=== PATIENT | male | born 1970 | race Caucasian/White ===

== ENCOUNTER 2024-01-09 11:07 | Inpatient (IN) ==
--- NOTE | 2024-01-09 11:26 | Emergency Department Note ---
Impression & Plan AMS (altered mental status), Acute hypokalemia, Leukocytosis, Transaminitis, Acute UTI (urinary tract infection) ED Provider Note HISTORY OF PRESENT ILLNESS: Patient is a 53-year-old male presenting after being found down. Patient was found down by neighbors under a mei outside of his house today. He was laying in the dirt. He was last seen at 1999 on 01/08/2024. Patient is amnestic to the events of last night and this morning leading up to him getting to the ER. He has no complaints on arrival to the ER. Denies any chest pain or shortness of breath. Denies any headache or changes in vision. Denies any numbness or tingling or weakness in his extremities. He states he drinks "2 and 2" every day, stating he drinks 2 beers and 2 shots. He reports he has not drank today. ROS: as above PHYSICAL EXAM: Constitutional: Patient appears in no acute distress. Patient is unkempt appearing and is covered in dirt. HENT: Head: Normocephalic. Hematoma to the right forehead. Eyes: EOMI, PERRL Mouth/Throat: Mucous membranes moist. Neck: Trachea midline. Neck supple. No cervical collar in place. No C- spine tenderness to palpation. Cardiovascular: RRR, No murmurs, rubs or gallops. Intact distal pulses. Pulmonary/Chest: No respiratory distress. Breath sounds clear and equal bilaterally. No wheezes or rales Abdominal: Abdomen soft, no tenderness, rebound or guarding. Musculoskeletal: No edema, tenderness or deformity noted. Skin: Warm and dry. No rash, erythema, pallor or cyanosis Neurological: Alert but confused. CN II-XII grossly intact, moving all extremities equally and fully. MDM: - Vitals signs showed tachycardia. - History obtained via patient and EMS, given patient's confusion. History as above. - Chronic conditions affecting care: Alcohol use disorder - Differential diagnoses include, but are not limited to: CVA; intracranial hemorrhage; ACS; electrolyte abnormality; alcohol intoxication; drug intoxication - Order placed for continuous cardiac monitoring. At this time, monitor showed rate of 92 bpm with normal sinus rhythm, per my interpretation. - External medical records reviewed. - EKG interpreted by myself showed normal sinus rhythm. Rate 117 bpm. QT prolonged at 434. No acute ischemic changes. - Laboratory workup interpreted by myself showed leukocytosis (WBC 14.85); normal PT/INR; hypokalemia (K 3.2); elevated anion gap (17); normal creatinine; transaminitis (AST 117; ALT 83); elevated total bilirubin (3.6); normal troponin; normal lipase; normal TSH; negative alcohol; normal magnesium - UA negative for bacteria. However, noted to have leukocyte esterase and nitrites, so will treat with rocephin. 2g IV rocephin ordered - UDS negative - CXR negative for pneumonia or pneumothorax, per my interpretation - CT head wo contrast negative for acute pathology - CT cervical spine wo contrast negative for acute pathology - CT abdomen/pelvis with IV contrast showed nonobstructive stones of the right kidney. Noted to have colonic wall thickening which could be a nonspecific colitis. - Alcohol withdrawal score 5. Alcohol withdrawal protocol ordered with PO PRN ativan. Patient reports his last drink was 48 hours ago. - Patient given 1L NS and banana bag. Ordered a total of 40 mEq IV potassium in potassium runs in the ER for electrolyte replacement. Given 1g IV magnesium for electrolyte replacement - Given patient's persistent confusion of unclear etiology as well has his electrolyte abnormalities causing a prolonged QT and EKG changes, will admit to hospital service. - Discussion was had with special education case manager about patient's case and need for admission - Hospitalist, Dr. Valera, consulted for admission - Patient admitted to [facility] hospitalist service for further evaluation and management. I have personally spent 41 minutes of critical care time in the direct management of this patient. This includes bedside care, interpretation of diagnostic studies, and testing, discussion with consultants, patient, and family members, and other required patient management activities. This 41 minutes is in excess of all separately billable procedures. ASSESSMENT AND PLAN: Diagnosis: Altered mental status; acute hypokalemia; leukocytosis; transaminitis; acute UTI Plan: admit Past Med/Surg History Problem List (Updated 01/09/24 @ 14:28 by Gauri Hansen MD) Acute UTI (urinary tract infection) (Acute) Transaminitis (Acute) Leukocytosis (Acute) Acute hypokalemia (Acute) AMS (altered mental status) (Acute) Social History Feels Safe at Home: Yes Results & Data (ED) Vital Signs Vital Signs - 24 hr 01/09/24 11:30 01/09/24 11:33 01/09/24 11:48 Temperature 37.1 C Temperature Source Oral Pulse Rate 115 H 117 H 108 H Pulse Rate [Left] Pulse Rate from SpO2 Sensor Pulse Rhythm [Left] Pulse Strength [Left] Respiratory Rate 17 20 Respiratory Effort / Characteristics Respiratory Depth Respiratory Pattern Blood Pressure Blood Pressure [Right Arm] Blood Pressure Mean Blood Pressure Mean [Right Arm] Blood Pressure Position [Right Arm] Pulse Oximetry 100 Oxygen Delivery Method Room Air Sepsis Recent Fever Within 48 Hours No Sepsis New/Unexplained Change in Mental Status No Sepsis Action Taken by Nursing No Action Required 01/09/24 11:54 01/09/24 12:06 01/09/24 12:15 Temperature Temperature Source Pulse Rate 112 H 112 H Pulse Rate [Left] Pulse Rate from SpO2 Sensor 111 H 111 H Pulse Rhythm [Left] Pulse Strength [Left] Respiratory Rate 16 20 Respiratory Effort / Characteristics Respiratory Depth Respiratory Pattern Blood Pressure 107/84 101/76 Blood Pressure [Right Arm] Blood Pressure Mean 91 78 Blood Pressure Mean [Right Arm] Blood Pressure Position [Right Arm] Pulse Oximetry 95 93 98 Oxygen Delivery Method Room Air Room Air Room Air Sepsis Recent Fever Within 48 Hours Sepsis New/Unexplained Change in Mental Status Sepsis Action Taken by Nursing 01/09/24 12:33 01/09/24 12:43 01/09/24 13:15 Temperature 36.8 C Temperature Source Oral Pulse Rate 109 H Pulse Rate [Left] 92 H Pulse Rate from SpO2 Sensor 111 H Pulse Rhythm [Left] Regular Pulse Strength [Left] Normal Respiratory Rate 19 18 Respiratory Effort / Characteristics Non-Labored Respiratory Depth Normal Respiratory Pattern Regular Blood Pressure 104/86 Blood Pressure [Right Arm] 138/87 Blood Pressure Mean 92 Blood Pressure Mean [Right Arm] 104 Blood Pressure Position [Right Arm] Sitting Pulse Oximetry 94 98 98 Oxygen Delivery Method Room Air Room Air Room Air Sepsis Recent Fever Within 48 Hours Sepsis New/Unexplained Change in Mental Status Sepsis Action Taken by Nursing Laboratory Data 01/09/24 11:21 01/09/24 11:21 Lab Results 01/09/24 01/09/24 01/09/24 Range/Units 11:21 11:23 11:28 WBC 14.85 H (4.8-10.8) K/ul RBC 3.57 L (4.70-6.10) M/uL Hgb 12.7 L (14.0-18.0) g/dl POC Hgb 12.2 L (14.0-18.0) g/dl Hct 35.9 L (42.0-52.0) % POC Hct 36 L (42-52) % MCV 100.6 H (80.0-100.0) fL MCH 35.6 H (25.0-34.0) pg MCHC 35.4 (32.0-36.0) g/dL RDW Std Deviation 47.8 H (36.4-46.3) fL RDW Coeff of Jaspreet 12.8 (11.5-14.5) % Plt Count 152 (130-400) K/uL MPV 11.4 (9.4-12.4) fL Immature Gran % (Auto) 0.7 % Neut % (Auto) 74.4 % Lymph % (Auto) 18.5 % Moore % (Auto) 5.3 % Eos % (Auto) 0.8 % Baso % (Auto) 0.3 % Neut # (Auto) 11.07 H (1.40-6.50) K/uL Lymph # (Auto) 2.74 (1.20-3.40) K/uL Moore # (Auto) 0.78 H (0.11-0.59) K/uL Eos # (Auto) 0.12 (0.00-0.50) K/uL Baso # (Auto) 0.04 (0.00-0.20) K/uL Immature Gran # (Auto) 0.10 (0.01-0.20) K/uL PT 11.8 (9.0-12.0) Seconds INR 1.1 (0.9-1.1) POC Sodium 142 (135-144) mmol/L Sodium 144 (136-145) mmol/L POC Potassium 2.1 L* (3.3-5.0) mmol/L Potassium 2.3 L* (3.5-5.1) mmol/L POC Chloride 95 L (101-112) mmol/L Chloride 94 L (98-107) mmol/L Carbon Dioxide 33 H (21-32) mmol/L POC Total CO2 33 H (24-31) mmol/L Anion Gap 17 H (3-11) POC Anion Gap 17.0 (16-25) mmol/L POC BUN 24 H (7-18) mg/dl BUN 27 H (6-23) mg/dl Creatinine 0.70 (0.6-1.4) mg/dl POC Creatinine 0.6 (0.6-1.3) mg/dl Est Cr Clr Drug Dosing 92.1 ml/min Est GFR ( Amer) 124.0 ml/min Est GFR (Non-Af Amer) 107.0 ml/min BUN/Creatinine Ratio 38.6 H (10-20) Glucose 100 H (70-99(Fasting)) mg/dl POC Glucose (other) 107 H (70-99) mg/dl Calcium 10.3 (8.6-10.3) mg/dl POC Ioniz Calcium Cirilo 1.10 L (1.12-1.32) mmol/l Magnesium 1.8 (1.7-2.4) mg/dl Total Bilirubin 3.6 H (0.2-1.0) mg/dl AST 117 H (13-39) U/L ALT 83 H (7-52) U/L Alkaline Phosphatase 152 H (34-104) U/L Troponin I High Sens 11.8 (0-20) pg/ml Total Protein 7.4 (6.0-8.3) gm/dl Albumin 3.9 (3.4-5.0) gm/dl Globulin 3.5 (2.5-4.0) gm/dl Albumin/Globulin Ratio 1.1 (0.9-2) Lipase 65 (11-82) U/L TSH 1.442 (0.300-4.500) uIu/ml Urine Color Urine Appearance (Clear) Urine pH (4.5-7.5) Ur Specific Garden (1.000-1.030) Urine Protein (Negative) Urine Glucose (UA) (Negative) Urine Ketones (Negative) Urine Blood (Negative) Urine Nitrite (Negative) Urine Bilirubin (Negative) Urine Urobilinogen (Negative) Ur Leukocyte Esterase (Negative) Urine WBC (Auto) (0-5) /hpf Urine RBC (Auto) (0-2) /hpf U Hyaline Cast (Auto) (0-2) /lpf U Epithel Cells (Auto) (0-2) /hpf Urine Bacteria (Auto) (None Seen) Urine Mucus (None Prsent) Urine Opiates Screen (Neg) Ur Methadone, Qual (Neg) Urine Fentanyl Screen (Neg) Urine Barbiturates (Neg) Ur Phencyclidine (PCP) (Neg) U Amphetamin/Meth Scrn (Neg) MDMA (Ecstasy) Screen (Neg) U Benzodiazepines Scrn (Neg) Ur Cocaine Metabolite (Neg) U Marijuana (THC) Screen (Neg) Ethyl Alcohol mg/dL < 10.0 (<10.0) mg/dl 01/09/24 Range/Units 12:18 WBC (4.8-10.8) K/ul RBC (4.70-6.10) M/uL Hgb (14.0-18.0) g/dl POC Hgb (14.0-18.0) g/dl Hct (42.0-52.0) % POC Hct (42-52) % MCV (80.0-100.0) fL MCH (25.0-34.0) pg MCHC (32.0-36.0) g/dL RDW Std Deviation (36.4-46.3) fL RDW Coeff of Jaspreet (11.5-14.5) % Plt Count (130-400) K/uL MPV (9.4-12.4) fL Immature Gran % (Auto) % Neut % (Auto) % Lymph % (Auto) % Moore % (Auto) % Eos % (Auto) % Baso % (Auto) % Neut # (Auto) (1.40-6.50) K/uL Lymph # (Auto) (1.20-3.40) K/uL Moore # (Auto) (0.11-0.59) K/uL Eos # (Auto) (0.00-0.50) K/uL Baso # (Auto) (0.00-0.20) K/uL Immature Gran # (Auto) (0.01-0.20) K/uL PT (9.0-12.0) Seconds INR (0.9-1.1) POC Sodium (135-144) mmol/L Sodium (136-145) mmol/L POC Potassium (3.3-5.0) mmol/L Potassium (3.5-5.1) mmol/L POC Chloride (101-112) mmol/L Chloride (98-107) mmol/L Carbon Dioxide (21-32) mmol/L POC Total CO2 (24-31) mmol/L Anion Gap (3-11) POC Anion Gap (16-25) mmol/L POC BUN (7-18) mg/dl BUN (6-23) mg/dl Creatinine (0.6-1.4) mg/dl POC Creatinine (0.6-1.3) mg/dl Est Cr Clr Drug Dosing ml/min Est GFR ( Amer) ml/min Est GFR (Non-Af Amer) ml/min BUN/Creatinine Ratio (10-20) Glucose (70-99(Fasting)) mg/dl POC Glucose (other) (70-99) mg/dl Calcium (8.6-10.3) mg/dl POC Ioniz Calcium Cirilo (1.12-1.32) mmol/l Magnesium (1.7-2.4) mg/dl Total Bilirubin (0.2-1.0) mg/dl AST (13-39) U/L ALT (7-52) U/L Alkaline Phosphatase (34-104) U/L Troponin I High Sens (0-20) pg/ml Total Protein (6.0-8.3) gm/dl Albumin (3.4-5.0) gm/dl Globulin (2.5-4.0) gm/dl Albumin/Globulin Ratio (0.9-2) Lipase (11-82) U/L TSH (0.300-4.500) uIu/ml Urine Color [place] Urine Appearance Cloudy A (Clear) Urine pH 5.5 (4.5-7.5) Ur Specific Garden 1.025 (1.000-1.030) Urine Protein 1+ H (Negative) Urine Glucose (UA) Negative (Negative) Urine Ketones 1+ H (Negative) Urine Blood Negative (Negative) Urine Nitrite Positive A (Negative) Urine Bilirubin 2+ H (Negative) Urine Urobilinogen Positive H (Negative) Ur Leukocyte Esterase 1+ H (Negative) Urine WBC (Auto) 0-5 (0-5) /hpf Urine RBC (Auto) 3-5 H (0-2) /hpf U Hyaline Cast (Auto) 6-10 H (0-2) /lpf U Epithel Cells (Auto) 3-5 H (0-2) /hpf Urine Bacteria (Auto) None Seen (None Seen) Urine Mucus Present A (None Prsent) Urine Opiates Screen Neg (Neg) Ur Methadone, Qual Neg (Neg) Urine Fentanyl Screen Neg (Neg) Urine Barbiturates Neg (Neg) Ur Phencyclidine (PCP) Neg (Neg) U Amphetamin/Meth Scrn Neg (Neg) MDMA (Ecstasy) Screen Neg (Neg) U Benzodiazepines Scrn Neg (Neg) Ur Cocaine Metabolite Neg (Neg) U Marijuana (THC) Screen Neg (Neg) Ethyl Alcohol mg/dL (<10.0) mg/dl Administered Medications Potassium Chloride (K Neal / Wtr) 10 meq in 100 mls @ 100 mls/hr IV Q1H AZAM Stop: 01/09/24 16:14 Last Admin: 01/09/24 12:35 Dose: 100 mls/hr Documented By: ABDIFATAH Discontinued Medications Multivitamins 10 ml/ Thiamine HCl 100 mg/ Folic Acid 1 mg/Sodium Chloride 1,011.2 mls @ 500 mls/hr IV .Q2H2M ONE Stop: 01/09/24 13:52 Last Admin: 01/09/24 12:38 Dose: 500 mls/hr Documented By: ABDIFATAH Sodium Chloride (Nss) 1,000 mls @ 999 mls/hr IV .Q1H1M ONE Stop: 01/09/24 13:20 Last Admin: 01/09/24 12:26 Dose: 999 mls/hr Documented By: ABDIFATAH Ioversol (Optiray 320 100ml) 94 ml IV ONCE ONE Stop: 01/09/24 12:53 Last Admin: 01/09/24 12:52 Dose: 94 ml Documented By: DAKOTA Lorazepam (Lorazepam 1 Mg Tab) 1 mg PO ONE PRN; Protocol PRN Reason: EtoH Withdrawal AWSS 6,7,8,9,10 Last Admin: 01/09/24 13:26 Dose: 1 mg Documented By: ABDIFATAH Lorazepam (Lorazepam 1 Mg Tab) Confirm Administered Dose 1 mg .ROUTE .STK-MED ONE Stop: 01/09/24 13:26 Last Admin: 01/09/24 13:26 Dose: Not Given Documented By: ABDIFATAH Imaging Data Radiologist's Impression: Chest X-Ray 01/09/24 11:09 SINGLE VIEW CHEST CLINICAL HISTORY: Syncope FINDINGS: An AP, portable, upright chest radiograph is obtained. No prior studies are available for comparison at the time of dictation. The cardiomediastinal silhouette is unremarkable. There is mild elevation of the left hemidiaphragm and bibasilar atelectasis. No airspace consolidation or pleural effusion is identified. No pneumothorax is seen. The bony thorax is grossly intact. IMPRESSION: No acute cardiopulmonary abnormality. ACT 112: Negative or not required by law. Electronically signed by: Serge Allen M.D. 01/09/2024 11:[address] 01/09/24 11:23 CT cervical spine wo con CLINICAL HISTORY: altered mental status; found down TECHNIQUE: Multidetector row helical CT of the cervical spine was performed without administration of intravenous contrast. Coronal and sagittal reformations were obtained. Automated dose lowering techniques and/or adjustment according to patient size were utilized for this exam. Comparison: None available at the time of this dictation. FINDINGS: No acute fractures or subluxations are identified. Degenerative changes are seen in the visualized spine. The alignment is normal. Soft tissues are unremarkable. IMPRESSION: Degenerative changes without evidence of acute bony injury. ACT 112: Negative or not required by law. Electronically signed by: Minh Camara M.D. 01/09/2024 12:[address] 01/09/24 11:23 CT SCAN OF THE BRAIN WITHOUT IV CONTRAST CLINICAL HISTORY: Change in mental status. COMPARISON STUDY: No priors. TECHNIQUE: Unenhanced axial CT scan of the brain is performed from the vertex to the skull base. A dose lowering technique was utilized adhering to the principles of ALARA. FINDINGS: Brain parenchyma: There is minimal microangiopathic change. There is no hemorrhage, mass effect, or evidence of acute territorial ischemia by CT criteria. Lua-white matter differentiation is preserved. No extra-axial fluid collection is seen. Ventricles, sulci, cisterns: Normal in configuration. Intracranial vasculature: There is atherosclerotic calcification of the cavernous carotid arteries. Calvarium: Unremarkable. Sinuses and mastoids: The visualized paranasal sinuses are clear. The mastoid air cells are well pneumatized. Orbits: The bony orbits are grossly intact. IMPRESSION: There is no hemorrhage, mass effect, or evidence of acute territorial ischemia by CT criteria. ACT 112: Negative or not required by law. Electronically signed by: Serge Allen M.D. 01/09/2024 12:18 PM Abdomen/Pelvis CT 07/17/24 12:20 CT abd pelvis IV con only CLINICAL HISTORY: hematuria; AMS; transaminitis TECHNIQUE: Helical axial images of the abdomen and pelvis were obtained and displayed. Automated dose lowering techniques and/or adjustment according to patient size were utilized for this exam. This exam was performed with intravenous contrast. CT DOSE: 514.08 mGy.cm COMPARISON: None available at the time of this dictation. FINDINGS: Lower chest: No acute abnormality. Liver: Hepatic steatosis is noted. Gallbladder and biliary tree: No calcified gallstones. Normal caliber wall. No intra- or extrahepatic biliary ductal dilation. Pancreas: Unremarkable, no focal lesions. Spleen: Unremarkable. Adrenals: Unremarkable. Kidneys and ureters: Subcentimeter hypodensities are too small to characterize. Right renal stones are seen. Bladder: Unremarkable. Reproductive organs: Unremarkable. Bowel: Diffuse thickening of the colonic wall is seen. The appendix is normal. Lymph nodes Retroperitoneal: Subcentimeter hunter hepatis nodes are noted. Pelvic: Unremarkable. Mesenteric: Unremarkable. Peritoneum: Normal. Vessels: Atherosclerotic calcifications are seen. Abdominal wall: Right fat-containing inguinal hernia. Bones: Degenerative changes in the visualized spine. IMPRESSION: 1. Nonobstructive stones in the right kidney. 2. Colonic wall thickening is seen, clinical correlation is recommended for nonspecific colitis. 3. Steatosis is seen. ACT 112: Negative or not required by law. Electronically signed by: Minh Camara M.D. 01/09/2024 1:15 PM Discharge Plan Visit Data Chief Complaint: Syncope ED Provider: Gauri Hansen Discharge Problem: AMS (altered mental status), Acute hypokalemia, Leukocytosis, Transaminitis, Acute UTI (urinary tract infection) Forms Stand Alone Forms: [facility] Referrals Referrals: Pelon Law III, CRNP [Primary Care Provider] -
--- NOTE | 2024-01-09 11:36 | Electrocardiogram Report ---
Test Reason : Blood Pressure : / mmHG Vent. Rate : 117 BPM Atrial Rate : 117 BPM P-R Int : 156 ms QRS Dur : 076 ms QT Int : 434 ms P-R-T Axes : 077 055 071 degrees QTc Int : 605 ms Sinus tachycardia Prolonged QT Abnormal ECG No previous ECGs available Confirmed by Sae Terry ([id number]) on 01/09/2024 11:36:31 AM Referred By: Confirmed By:Sae Terry
[2024-01-09 11:41] LABS: iSTAT Creatinine 0.6 mg/dl (0.6-1.3); iSTAT Hemoglobin 12.2 g/dl (14.0-18.0); iSTAT Ionized Calcium 1.1 mmol/l (1.12-1.32); iSTAT Potassium 2.1 mmol/L (3.3-5.0)
--- NOTE | 2024-01-09 11:47 | XRay Report ---
SINGLE VIEW CHEST CLINICAL HISTORY: Syncope FINDINGS: An AP, portable, upright chest radiograph is obtained. No prior studies are available for c omparison at the time of dictation. The cardiomediastinal silhouette is unremarkable. There is mild e levation of the left hemidiaphragm and bibasilar atelectasis. No airspace consolidation or pleural ef fusion is identified. No pneumothorax is seen. The bony thorax is grossly intact. IMPRESSION: No acute cardiopulmonary abnormality. ACT 112: Negative or not required by law. Electronically signed by: Serge Allen M.D. 01/09/2024 11:46 AM
[2024-01-09 11:49] LABS: Basophils # (auto) 0.04 K/uL (0.00-0.20); Basophils % (auto) 0.3 %; Eosinophils # (auto) 0.12 K/uL (0.00-0.50); Eosinophils % (auto) 0.8 %; Hematocrit (blood only) 35.9 % (42.0-52.0); Hemoglobin 12.7 g/dl (14.0-18.0); Immature Granulocytes % (auto) 0.7 %; Lymphocytes # (auto) 2.74 K/uL (1.20-3.40); Lymphocytes % (auto) 18.5 %; Mean Corpuscular Hemoglobin 35.6 pg (25.0-34.0); Mean Corpuscular Hgb Conc 35.4 g/dL (32.0-36.0); Mean Corpuscular Volume 100.6 fL (80.0-100.0); Mean Platelet Volume 11.4 fL (9.4-12.4); Monocytes # (auto) 0.78 K/uL (0.11-0.59); Monocytes % (auto) 5.3 %; Neutrophils # (auto) 11.07 K/uL (1.40-6.50); Neutrophils % (auto) 74.4 %; Platelet Count 152 K/uL (130-400); RDW Coefficient of Variation 12.8 % (11.5-14.5); RDW Standard Deviation 47.8 fL (36.4-46.3); Red Blood Count 3.57 M/uL (4.70-6.10); White Blood Count 14.85 K/ul (4.8-10.8)
[2024-01-09 12:09] LABS: Albumin Globulin Ratio 1.1 (0.9-2); Albumin Level 3.9 gm/dl (3.4-5.0); BUN Creatinine Ratio 38.6 (10-20); Bilirubin,Total 3.6 mg/dl (0.2-1.0); Calcium 10.3 mg/dl (8.6-10.3); Creatinine Clr Calc Pharmacy 92.1 ml/min; Globulin 3.5 gm/dl (2.5-4.0); Magnesium 1.8 mg/dl (1.7-2.4); Potassium 2.3 mmol/L (3.5-5.1); Total Protein 7.4 gm/dl (6.0-8.3)
[2024-01-09 12:17] LABS: INR 1.1 (0.9-1.1); Prothrombin Time 11.8 Seconds (9.0-12.0)
--- NOTE | 2024-01-09 12:20 | CT Scan Report ---
CT SCAN OF THE BRAIN WITHOUT IV CONTRAST CLINICAL HISTORY: Change in mental status. COMPARISON STUDY: No priors. TECHNIQUE: Unenhanced axial CT scan of the brain is performed from the vertex to the skull base. A d ose lowering technique was utilized adhering to the principles of ALARA. FINDINGS: Brain parenchyma: There is minimal microangiopathic change. There is no hemorrhage, mass effect, or e vidence of acute territorial ischemia by CT criteria. Lua-white matter differentiation is preserved. No extra-axial fluid collection is seen. Ventricles, sulci, cisterns: Normal in configuration. Intracranial vasculature: There is atherosclerotic calcification of the cavernous carotid arteries. Calvarium: Unremarkable. Sinuses and mastoids: The visualized paranasal sinuses are clear. The mastoid air cells are well pneu matized. Orbits: The bony orbits are grossly intact. IMPRESSION: There is no hemorrhage, mass effect, or evidence of acute territorial ischemia by CT pepe kulkarni. ACT 112: Negative or not required by law. Electronically signed by: Serge Allen M.D. 01/09/2024 12:18 PM
[2024-01-09] MEDS: SODIUM CHLORIDE 0.9% 1,000 ML IV ONE (12:26)
--- NOTE | 2024-01-09 12:27 | CT Scan Report ---
CT cervical spine wo con CLINICAL HISTORY: altered mental status; found down TECHNIQUE: Multidetector row helical CT of the cervical spine was performed without administration of intravenous contrast. Coronal and sagittal reformations were obtained. Automated dose lowering techn iques and/or adjustment according to patient size were utilized for this exam. Comparison: None available at the time of this dictation. FINDINGS: No acute fractures or subluxations are identified. Degenerative changes are seen in the visualized sp ine. The alignment is normal. Soft tissues are unremarkable. IMPRESSION: Degenerative changes without evidence of acute bony injury. ACT 112: Negative or not required by law. Electronically signed by: Minh Camara M.D. 01/09/2024 12:26 PM
[2024-01-09] MEDS: POTASSIUM CHLORIDE / WTR 10 MEQ/100 ML PLCT IV SCH ×3 (12:35→20:37)
[2024-01-09] MEDS: MULTI-VITAMIN INFUSION 10 ML, THIAMINE HCL 100 MG, FOLIC ACID 1 MG in SODIUM CHLORIDE 0... IV ONE (12:38)
[2024-01-09 12:44] LABS: Thyroid Stimulating Hormone 1.442 uIu/ml (0.300-4.500); Troponin I High Sensitivity 11.8 pg/ml (0-20)
[2024-01-09 12:48] LABS: Appearance Urine Cloudy (Clear); Bacteria Urine Automated None Seen (None Seen); Bilirubin Urine 2+ (Negative); Blood Urine Negative (Negative); Color Urine Orange; Glucose Urine UA Negative (Negative); Ketones Urine 1+ (Negative); Leukocyte Esterase Urine 1+ (Negative); Mucus Urine Present (None Prsent); Nitrite Urine Positive (Negative); Protein Urine 1+ (Negative); Specific Gravity Urine 1.025 (1.000-1.030); Urobilinogen Urine Positive (Negative); WBC Urine Automated 0-5 /hpf (0-5); pH Urine 5.5 (4.5-7.5)
[2024-01-09] MEDS: OPTIRAY 320 100ml IV ONE (12:52)
--- NOTE | 2024-01-09 13:17 | CT Scan Report ---
CT abd pelvis IV con only CLINICAL HISTORY: hematuria; AMS; transaminitis TECHNIQUE: Helical axial images of the abdomen and pelvis were obtained and displayed. Automated dose lowering techniques and/or adjustment according to patient size were utilized for this exam. This e xam was performed with intravenous contrast. CT DOSE: 514.08 mGy.cm COMPARISON: None available at the time of this dictation. FINDINGS: Lower chest: No acute abnormality. Liver: Hepatic steatosis is noted. Gallbladder and biliary tree: No calcified gallstones. Normal caliber wall. No intra- or extrahepatic biliary ductal dilation. Pancreas: Unremarkable, no focal lesions. Spleen: Unremarkable. Adrenals: Unremarkable. Kidneys and ureters: Subcentimeter hypodensities are too small to characterize. Right renal stones ar e seen. Bladder: Unremarkable. Reproductive organs: Unremarkable. Bowel: Diffuse thickening of the colonic wall is seen. The appendix is normal. Lymph nodes Retroperitoneal: Subcentimeter hunter hepatis nodes are noted. Pelvic: Unremarkable. Mesenteric: Unremarkable. Peritoneum: Normal. Vessels: Atherosclerotic calcifications are seen. Abdominal wall: Right fat-containing inguinal hernia. Bones: Degenerative changes in the visualized spine. IMPRESSION: 1. Nonobstructive stones in the right kidney. 2. Colonic wall thickening is seen, clinical correlation is recommended for nonspecific colitis. 3. Steatosis is seen. ACT 112: Negative or not required by law. Electronically signed by: Minh Camara M.D. 01/09/2024 1:15 PM
[2024-01-09 13:19] LABS: Amphetamines+Metham, Urine Neg (Neg); Barbiturates, Urine Neg (Neg); Benzodiazepine, Urine Neg (Neg); Cocaine, Urine Neg (Neg); Fentanyl, Urine Neg (Neg); MDMA (Ecstacy), Urine Neg (Neg); Marijuana, Urine Neg (Neg); Methadone, Urine Neg (Neg); Opiate, Urine Neg (Neg); Phencyclidine, Urine Neg (Neg)
[2024-01-09] MEDS: LORazepam 1 MG TAB ONE (13:26)
[2024-01-09] MEDS: LORazepam 1 MG TAB PO PRN (13:26)
[2024-01-09] MEDS: cefTRIAXone SODIUM 2,000 MG/50 ML BAG IV STA (14:47)
[2024-01-09] MEDS: MAGNESIUM SULFATE / D5W 1 GM/100 ML BAG IV STA (14:48)
--- NOTE | 2024-01-09 15:44 | History & Physical Report ---
Date of Service January 09, 2024 Assessment & Plan (1) Alcohol withdrawal: Plan: Patient was found passed out in his neighbors yard on 01/08; he is tremulous on arrival He is not A&O to month/location/purpose on arrival, and does not exhibit capacity to provide a history at this time; no prior notes or history available He does endorse drinking on arrival, and reports his last drink was on Saturday 01/06 He reports he drinks 3-4 drinks of Bacardi per day Megaloblastic anemia on arrival Medical alcohol level <10 A/P CT on arrival revealed nonobstructive stone in the right kidney and potential nonspecific colitis Head/neck CTs without acute findings AWSS active withdrawal protocol with Ativan Librium taper Vitamin B12 and folate supplements daily Seizure precautions Fall precautions Continuous telemetry monitoring A.m. CBC, BMP, mag (2) AMS (altered mental status): Plan: Likely secondary to #1 UDS negative Glucose WNL DDx includes wernicke's encephalopathy (3) Hypokalemia: Plan: Severe; K 2.3 on arrival K riders 10mEq IV x 4 given in the ED Will give an additional additional 60mEq IV (will hold off on p.o. in current state) Trend BMP q4h and will continue to reassess throughout (4) Acute UTI (urinary tract infection): Plan: Leukocytosis at 14.85 on arrival; afebrile UA positive on arrival Rocephin 2000 mg IV q24h Blood cultures ordered, pending Procalcitonin ordered, pending Follow UCx (5) Rhabdomyolysis: Plan: Patient was down for an unknown period of time CK elevated at 1256 on arrival NSS 1000 mL IV in the ED Continue IVF resuscitation with Plasma-Lyte 100 mL/hr x 2 L Recheck AM CK level (6) Anemia: Plan: Hgb 12.7 on arrival, no prior for comparison Haptoglobin and direct Jerome test ordered, pending Peripheral blood smear to assess for hemolysis No signs of active bleeding on clinical exam, but patient does have a bruise on his right forehead Trend H&H (7) Elevated transaminase level: Plan: Secondary to #1 Plan Disposition: Admit to PCU telemetry Full code (must be revisited as patient does not exhibit capacity at this time, and there is no family at bedside) Regular diet VTE PPx: SCDs; will hold chemical DVT PX for 24 hours in the setting of suspected head injury/trauma History of Present Illness Chief Complaint: Altered mental status Primary Care Provider: Pelon Law, [place], ANA LUISA Fritz is a 53-year-old male with unknown PMH. Presented after being found down outside his apartment complex under a bushes on 01/08. He is not alert or oriented to month/location/purpose in the hospital at time of admission. Patient is unsure what happened last night. He does report that he drinks 3-4 drinks daily; mainly Bacardi and Dr. Anderson. His last drink was reportedly on Saturday 01/06. Patient denies history of seizures or alcohol withdrawal. He denies head strike, but does note that he has a bump on his right head. Patient reports he lives with his mom; he is okay with her being called, but does not know her number at this time. Patient is a poor historian at this time. Vital stable at time of admission. ED course: K rider 10 mg IV x 4 Banana bag x 1 NSS 1000 mL IV Lorazepam 1 mg p.o. Rocephin 2 mg IV Magnesium sulfate 1 g IV Unable to obtain an accurate ROS at this time given altered mental status; however, denies fever, chills, chest pain, chest pressure, SOB, or abdominal pain. Allergies Allergy/AdvReac Type Severity Reaction Status Date / Time No Known Allergies Allergy Verified 01/09/24 15:13 Home Medications Medication Instructions Recorded Confirmed Type No Known Home Medications 01/09/24 01/09/24 History Past Med/Surg History Problem List (Updated 01/09/24 @ 21:06 by Rusty Collins PA-C) Rhabdomyolysis Anemia Alcohol withdrawal Elevated transaminase level Hypokalemia Acute UTI (urinary tract infection) (Acute) Transaminitis (Acute) Leukocytosis (Acute) Acute hypokalemia (Acute) AMS (altered mental status) (Acute) Social History Smoking Status: Unknown if ever smoked Hx Alcohol Use: Yes Hx Substance Use: No (unknown) Preferred Language: Taiwanese Communication Ability: Impaired [employer] Super[employer] Required: No Beliefs That Will Affect Care: None Feels Safe at Home: Declines to Answer Review of Systems Review of Systems: See HPI above Physical Exam Physical Exam: General: Tremulous, lethargic; hands and mouth are covered in dirt; frail appearing; SpO2 95% on RA HEENT: Bruising, and potential hematoma on the right forehead; no scleral icterus; PERRLA; dry mucus membrane; unable to assess vision and hearing Neck: supple; no lymphadenopathy; trachea midline Skin: warm, dry without signs of tenting; no cyanosis; no rashes, bruising, lesions, or erythema noted CV: chest wall NTP; RR, tachycardic around 105 bpm; S1/S2 normal; no murmurs/rubs/gallops; pulses intact and symmetric at radial, DP, and PT Lungs: no acute respiratory distress; symmetrical chest wall expansion; clear breath sounds across all lung schroeder w/o adventitious sounds; no wheezing ABD: Soft, NTP; BS present; no rebound/guarding; no distention MSK: no tics or fasciculations; no edema noted in the LEs b/l, nonerythematous Neuro: Patient is oriented to name/, but not oriented to month/location/purpose; fluent speech; occasional lucidity with speech; no focal deficits; patient reports sensation intact bilaterally Results & Data Results & Data Vital Signs (Past 12 Hours) Vital Signs Temp Pulse Pulse Resp BP BP Pulse Ox 01/09/24 15:00 80 22 131/76 95 01/09/24 14:46 128/76 01/09/24 14:16 118/81 01/09/24 14:15 37.0 C 105 H 20 118/81 98 01/09/24 14:00 98 H 18 121/98 98 01/09/24 13:54 91 H 18 94 01/09/24 13:45 115/95 01/09/24 13:31 115/86 01/09/24 13:15 93 H 18 138/87 90 01/09/24 13:15 36.8 C 92 H 18 138/87 98 01/09/24 12:43 98 01/09/24 12:33 109 H 19 104/86 94 01/09/24 12:15 101/76 98 01/09/24 12:06 112 H 20 107/84 93 01/09/24 11:54 112 H 16 95 01/09/24 11:48 108 H 01/09/24 11:33 37.1 C 117 H 20 100 01/09/24 11:30 115 H 17 O2 Del Method 01/09/24 15:00 Room Air 01/09/24 14:46 01/09/24 14:16 01/09/24 14:15 Room Air 01/09/24 14:00 Room Air 01/09/24 13:54 01/09/24 13:45 01/09/24 13:31 01/09/24 13:15 01/09/24 13:15 Room Air 01/09/24 12:43 Room Air 01/09/24 12:33 Room Air 01/09/24 12:15 Room Air 01/09/24 12:06 Room Air 01/09/24 11:54 Room Air 01/09/24 11:48 01/09/24 11:33 Room Air 01/09/24 11:30 Laboratory Results Abnormal lab results 01/09/24 01/09/24 01/09/24 Range/Units 11:21 11:28 12:18 WBC 14.85 H (4.8-10.8) K/ul RBC 3.57 L (4.70-6.10) M/uL Hgb 12.7 L (14.0-18.0) g/dl POC Hgb 12.2 L (14.0-18.0) g/dl Hct 35.9 L (42.0-52.0) % POC Hct 36 L (42-52) % MCV 100.6 H (80.0-100.0) fL MCH 35.6 H (25.0-34.0) pg RDW Std Deviation 47.8 H (36.4-46.3) fL Neut # (Auto) 11.07 H (1.40-6.50) K/uL [place] # (Auto) 0.78 H (0.11-0.59) K/uL POC Potassium 2.1 L* (3.3-5.0) mmol/L Potassium 2.3 L* (3.5-5.1) mmol/L POC Chloride 95 L (101-112) mmol/L Chloride 94 L (98-107) mmol/L Carbon Dioxide 33 H (21-32) mmol/L POC Total CO2 33 H (24-31) mmol/L Anion Gap 17 H (3-11) POC BUN 24 H (7-18) mg/dl BUN 27 H (6-23) mg/dl BUN/Creatinine Ratio 38.6 H (10-20) Glucose 100 H (70-99(Fasting)) mg/dl POC Glucose (other) 107 H (70-99) mg/dl POC Ioniz Calcium Cirilo 1.10 L (1.12-1.32) mmol/l Total Bilirubin 3.6 H (0.2-1.0) mg/dl AST 117 H (13-39) U/L ALT 83 H (7-52) U/L Alkaline Phosphatase 152 H (34-104) U/L Urine Appearance Cloudy A (Clear) Urine Protein 1+ H (Negative) Urine Ketones 1+ H (Negative) Urine Nitrite Positive A (Negative) Urine Bilirubin 2+ H (Negative) Urine Urobilinogen Positive H (Negative) Ur Leukocyte Esterase 1+ H (Negative) Urine RBC (Auto) 3-5 H (0-2) /hpf U Hyaline Cast (Auto) 6-10 H (0-2) /lpf U Epithel Cells (Auto) 3-5 H (0-2) /hpf Urine Mucus Present A (None Prsent) Diagnostic Findings Chest X-Ray 01/09/24 11:09 SINGLE VIEW CHEST CLINICAL HISTORY: Syncope FINDINGS: An AP, portable, upright chest radiograph is obtained. No prior studies are available for comparison at the time of dictation. The cardiome diastinal silhouette is unremarkable. There is mild elevation of the left hemidiaphragm and bibasilar atelectasis. No airspace consolidation or pleural effusion is identified. No pneumothorax is seen. The bony thorax is grossly intact. IMPRESSION: No acute cardiopulmonary abnormality. ACT 112: Negative or not required by law. Electronically signed by: Serge Allen M.D. 01/09/2024 11:[address] 01/09/24 11:23 CT cervical spine wo con CLINICAL HISTORY: altered mental status; found down TECHNIQUE: Multidetector row helical CT of the cervical spine was performed without administration of intravenous contrast. Coronal and sagittal reformations were obtained. Automated dose lowering techniques and/or adjustment according to patient size were utilized for this exam. Comparison: None available at the time of this dictation. FINDINGS: No acute fractures or subluxations are identified. Degenerative changes are seen in the visualized spine. The alignment is normal. Soft tissues are unremarkable. IMPRESSION: Degenerative changes without evidence of acute bony injury. ACT 112: Negative or not required by law. Electronically signed by: Minh Camara M.D. 01/09/2024 12:[address] 01/09/24 11:23 CT SCAN OF THE BRAIN WITHOUT IV CONTRAST CLINICAL HISTORY: Change in mental status. COMPARISON STUDY: No priors. TECHNIQUE: Unenhanced axial CT scan of the brain is performed from the vertex to the skull base. A dose lowering technique was utilized adhering to the principles of ALARA. FINDINGS: Brain parenchyma: There is minimal microangiopathic change. There is no hemorrhage, mass effect, or evidence of acute territorial ischemia by CT criteria. Lua-white matter differentiation is preserved. No extra-axial fluid collection is seen. Ventricles, sulci, cisterns: Normal in configuration. Intracranial vasculature: There is atherosclerotic calcification of the aron nous carotid arteries. Calvarium: Unremarkable. Sinuses and mastoids: The visualized paranasal sinuses are clear. The mastoid air cells are well pneumatized. Orbits: The bony orbits are grossly intact. IMPRESSION: There is no hemorrhage, mass effect, or evidence of acute territorial ischemia by CT criteria. ACT 112: Negative or not required by law. Electronically signed by: Serge Allen M.D. 01/09/2024 12:18 PM Abdomen/Pelvis CT 01/09/24 12:20 CT abd pelvis IV con only CLINICAL HISTORY: hematuria; AMS; transaminitis TECHNIQUE: Helical axial images of the abdomen and pelvis were obtained and displayed. Automated dose lowering techniques and/or adjustment according to patient size were utilized for this exam. This exam was performed with intravenous contrast. CT DOSE: 514.08 mGy.cm COMPARISON: None available at the time of this dictation. FINDINGS: Lower chest: No acute abnormality. Liver: Hepatic steatosis is noted. Gallbladder and biliary tree: No calcified gallstones. Normal caliber wall. No intra- or extrahepatic biliary ductal dilation. Pancreas: Unremarkable, no focal lesions. Spleen: Unremarkable. Adrenals: Unremarkable. Kidneys and ureters: Subcentimeter hypodensities are too small to characterize. Right renal stones are seen. Bladder: Unremarkable. Reproductive organs: Unremarkable. Bowel: Diffuse thickening of the colonic wall is seen. The appendix is normal. Lymph nodes Retroperitoneal: Subcentimeter hunter hepatis nodes are noted. Pelvic: Unremarkable. Mesenteric: Unremarkable. Peritoneum: Normal. Vessels: Atherosclerotic calcifications are seen. Abdominal wall: Right fat-containing inguinal hernia. Bones: Degenerative changes in the visualized spine. IMPRESSION: 1. Nonobstructive stones in the right kidney. 2. Colonic wall thickening is seen, clinical correlation is recommended for nonspecific colitis. 3. Steatosis is seen. ACT 112: Negative or not required by law. Electronically signed by: Minh Camara M.D. 01/09/2024 1:15 PM ECG Additional Comments: ECG revealed sinus tachycardia at 117 bpm; QTc 605 (caution use of QT prolonging agents), no prior EKGs for comparison Code Status & VTE Plan Code Status Full code (please readdress with patient once he is oriented) VTE Prophylaxis Plan VTE Prophylaxis will be ordered: Yes Supervising Physician Co-Signing Physician Notes Patient seen and examined, chart reviewed, case discussed with Rusty Collins PA-C and I agree with the assessment and plan as above except as otherwise noted Labs and images reviewed 52yo M found passed out on lawn. Initially disoriented in the ER, on reassessment is oriented to name, year, and place. Denies pain. Tremulous. Head CT negative, R sided hematoma is present. BSG normal +Macrocytic anemia UA infected appearing CT ?nonspecific colitis CT-H naf CT-C spine: naf CXR: naf Seen at bedside. He is oriented to name, "Aniket Sagastume "" [birth year]23 ". Appears diffusely tremulous. Falls back asleep easily. Denies headache, photosensitivity, photosensitivity, nuchal rigidity. He endorses drinking a "big bottle, handle "of Bacardi which lasts him between 2 and 3 days. He is not sure when his last drink was thinks ~2 days ago. He denies recent fever, chills, sweats. No chest pain or chest pressure. Is able to bend his chin to his chest without any discomfort. Reports that we are able to call his mother if we like for medical update, but falls asleep and reports he does not remember the phone number off the top of his head. Denies diarrhea, endorses loose bowels normally. Altered mental status Patient was found passed out. He awakens easily and is more oriented at hospitalist reassessment as noted above, but was poorly oriented on initial ER evaluation and has waxing and waning course. Denies infectious symptoms, UA is potentially infected appearing. He has a leukocytosis without left shift, NLR is not markedly elevated. Differential includes alcohol withdrawal, infectious encephalopathy. He has no meningeal signs on admission. CT of the head was clear. Will continue on empiric Rocephin pending additional workup, treat alcohol abuse as above, replete electrolytes as noted continue serial reassessment. He is alert enough to engage with exam at time of admitting attending assessment, distal extremity strength is intact in hands and feet, does not have photo/phono sensitivity, and does not have neck pain or nuchal rigidity. History of EtOH abuse, AMS, transaminitis, specked acute alcohol withdrawal - Tremulous. ETOH negative. Hx alcohol abuse. Last drink 2 days ago. Pt does not remember passing out. AWSS 5 at time of ER assessment. UA infected vs contaminated. BC and procalcitonin pending. Transaminitis, hyperbilirubinemia without evidence of obstruction on CT-A/P. No abdominal pain at bedside. ?alcoholic hepatitis now presenting with withdrawal. Haptoglobin, direct jerome, peripheral smear added for hemolysis eval. AWSS active protocol continued. +librium protocol. - frequently outdoors, with tremors, +aminitis but no thrombocytopenia. Lyme added. Does not appear meningeal on admit, but if AMS does not improve with ETOH tx and abx tx, --> f/u LP Hypokalemia Denies diarrheal illness? Malnutrition. CT- Nonspecific colitis. IV FM, continue electrolyte repletion s/p 40meq IV. Ordered for an additional 20 mEq IV, in addition to 20 mEq p.o. 3 times daily x 3 doses. BMP every 4 hours until normalized Magnesium 1.8, daily supplementation added ? UTI UA is infected appearing, 3-5 epithelial cells. Empirically treated for UTI with rocephin. blood cultures pending, urine cultures pending. Lactate is no rmal. Does have a leukocytosis. BP, pulse, respiration, SpO2 normal at bedside assessment Agree with above PG Care Time/CCT Total # of Minutes Spent Total Time Spent with Patient: Total time spent is greater than 50% in coordination of care (as documented) at patient's floor/unit and/or counseling patient: [place] [address] INT INP/OBS CARE 3/75MIN Patient Type New Medical Decision Making High Complexity Diagnoses Alcohol withdrawal F10.939 AMS (altered mental status) R41.82 Hypokalemia E87.6 Acute UTI (urinary tract infection) N39.0 Rhabdomyolysis M62.82 Anemia D64.9 Elevated transaminase level R74.01
[2024-01-09] MEDS ORDERED: Ativan IV Alcohol Withdrawal--Active Protocol IV PRN (16:00)
[2024-01-09] MEDS ORDERED: LORazepam 3 MG in SYRINGE 1.5 ML IV PRN (16:00)
[2024-01-09] MEDS ORDERED: LORazepam 2 MG in SYRINGE 1 ML IV PRN (16:00)
[2024-01-09] MEDS ORDERED: chlordiazePOXIDE ALCOHOL WITHDRAWL 50MG PO STA (16:21)
[2024-01-09] MEDS: chlordiazePOXIDE HCl 25 MG CAP PO SCH (17:41)
[2024-01-09] MEDS: POTASSIUM CHLORIDE CRTAB 20 MEQ TABCR PO SCH (17:43)
[2024-01-09 18:08] LABS: Calcium 8.7 mg/dl (8.6-10.3); Est GFR (African American) 142.4 ml/min; Est GFR (Non-African American) 122.9 ml/min; Potassium 2.4 mmol/L (3.5-5.1)
[2024-01-09 18:22] LABS: Folate (Folic Acid),Ser orPlas > 22.30 ng/ml (>5.38)
[2024-01-09 18:23] LABS: Vitamin B12 1013 pg/ml (180-914)
[2024-01-09 20:28] LABS: Hematocrit (blood only) 28.9 % (42.0-52.0); Hemoglobin 10.1 g/dl (14.0-18.0)
[2024-01-09 20:35] LABS: BUN Creatinine Ratio 40.4 (10-20); Calcium 8.5 mg/dl (8.6-10.3); Est GFR (African American) 140.1 ml/min; Est GFR (Non-African American) 120.9 ml/min; Potassium 2.8 mmol/L (3.5-5.1)
[2024-01-09] MEDS: MAGNESIUM SULFATE / D5W 1 GM/100 ML BAG IV ONE (20:37)
[2024-01-09 20:42] LABS: Base Excess VBG 8.7 mEq/L; HCO3 VBG 33 mmol/L; Oxygen Saturation VBG 89.6 %; PCO2 VBG 42 mmHg (38-50); PO2 VBG 58 mmHg
[2024-01-09 21:35] LABS: Lyme Screen Rflx Confirmation Positive (Negative)
[2024-01-09] MEDS: PLASMA-LYTE A 1,000 ML IV SCH (21:42)
[2024-01-09 22:09] LABS: Lyme Ab IgG 2nd Tier Confirm Positive (Negative); Lyme Ab IgM 2nd Tier Confirm Negative (Negative)
[2024-01-10 01:28] LABS: BUN Creatinine Ratio 40.4 (10-20); Calcium 8.2 mg/dl (8.6-10.3); Est GFR (African American) 140.1 ml/min; Est GFR (Non-African American) 120.9 ml/min; Potassium 2.9 mmol/L (3.5-5.1)
[2024-01-10] MEDS: POTASSIUM CHLORIDE / WTR 10 MEQ/100 ML PLCT IV SCH ×2 (02:45→15:32)
[2024-01-10] MEDS ORDERED: cefTRIAXone SODIUM 2,000 MG/50 ML BAG IV SCH (08:00)
[2024-01-10 08:01] LABS: Basophils # (auto) 0.05 K/uL (0.00-0.20); Basophils % (auto) 0.4 %; Eosinophils # (auto) 0.39 K/uL (0.00-0.50); Eosinophils % (auto) 3.5 %; Hematocrit (blood only) 26.9 % (42.0-52.0); Hemoglobin 9.3 g/dl (14.0-18.0); Immature Granulocytes # (auto) 0.07 K/uL (0.01-0.20); Immature Granulocytes % (auto) 0.6 %; Lymphocytes % (auto) 28.6 %; Mean Corpuscular Hemoglobin 35.8 pg (25.0-34.0); Mean Corpuscular Hgb Conc 34.6 g/dL (32.0-36.0); Mean Corpuscular Volume 103.5 fL (80.0-100.0); Mean Platelet Volume 11.3 fL (9.4-12.4); Monocytes % (auto) 6.3 %; Neutrophils # (auto) 6.76 K/uL (1.40-6.50); Neutrophils % (auto) 60.6 %; Platelet Count 115 K/uL (130-400); RDW Coefficient of Variation 13.1 % (11.5-14.5); RDW Standard Deviation 49.2 fL (36.4-46.3); White Blood Count 11.17 K/ul (4.8-10.8)
--- NOTE | 2024-01-10 08:01 | Hospitalist Progress Note ---
Date of Service January 10, 2024 Assessment & Plan (1) Alcohol withdrawal: Plan: Patient was found passed out in his neighbors yard on 01/08; he is tremulous on arrival with history of alcohol abuse negative urine tox, but abnormal ua and positive initial lyme screen for previous infection unknown if treated prehospital abd pain and diarrhea, these sx have resolved, councelled to have oupt colonoscopy for screening metabolic encephalopathy on arrival, last drink of alcohol is 01/06 Megaloblastic anemia on arrival Medical alcohol level <10 A/P CT on arrival revealed nonobstructive stone in the right kidney and potential nonspecific colitis Head/neck CTs without acute findings continued on Ceftriaxone for concern of uti poa and untreated lyme disease AWSS active withdrawal protocol with Ativan Librium taper, added bid gabapentin Vitamin B12 and folate supplements daily Seizure precautions (2) Hypokalemia: Plan: Severe; K 2.3 on arrival K riders 10mEq IV x 4 given in the ED Will give an additional additional 60mEq IV (will hold off on p.o. in current state) (3) Rhabdomyolysis: Plan: Patient was down for an unknown period of time CK elevated at 1256 on arrival NSS 1000 mL IV in the ED Continue IVF resuscitation with Plasma-Lyte 100 mL/hr, with decreased urine output will have additional fluids (4) Anemia: Plan: Hgb 12.7 on arrival, no prior for comparison Haptoglobin and direct Francisco test ordered, pending Peripheral blood smear to assess for hemolysis No signs of active bleeding on clinical exam, but patient does have a bruise on his right forehead Plan Full code (must be revisited as patient does not exhibit capacity at this time, and there is no family at bedside) VTE PPx: SCDs; will hold chemical DVT PX for 24 hours in the setting of suspected head injury/trauma Admission and Anticipated Discharge Date Admission Date: January 09, 2024 Subjective pt is tremulous states was having some lower abdominal pain and diarrhea prior to presenting now with decreased urine output despite hydration, but was down and outside for some time no c/o feeling urinary retention symptoms pt does admit to daily alcohol use, is concerned about pancreatic insufficiency Physical Exam Physical Exam: awake, forgetful, some tremor, cardiac is regular lungs are clear abd is soft and non tender Results & Data Results & Data Vital Signs (Past 12 Hours) Vital Signs Temp Pulse Pulse Resp BP Pulse Ox O2 Del Method 01/10/24 07:21 82 01/10/24 02:51 98.1 F 78 16 101/68 97 Room Air 01/09/24 23:33 99.7 F H 93 H 18 98/63 L 94 Room Air 01/09/24 21:51 92 H Laboratory Results Reviewed CBC reviewed chemistry augmented potassium PG Care Time/CCT Total # of Minutes Spent Total Time Spent with Patient: Total time spent is greater than 50% in coordination of care (as documented) at patient's floor/unit and/or counseling patient: Coding Level of Care Code 81829 SUB INP/OBS CARE 3/50MIN Diagnoses Alcohol withdrawal F10.939 Hypokalemia E87.6 Rhabdomyolysis M62.82 Anemia D64.9
[2024-01-10 08:36] LABS: Alanine Aminotransferase 61 U/L (7-52); Albumin Level 2.8 gm/dl (3.4-5.0); Alkaline Phosphatase 108 U/L (34-104); Anion Gap 9 (3-11); Aspartate Aminotransferase 101 U/L (13-39); BUN Creatinine Ratio 44.2 (10-20); Bilirubin,Total 1.9 mg/dl (0.2-1.0); Blood Urea Nitrogen 19 mg/dl (6-23); Calcium 8.2 mg/dl (8.6-10.3); Carbon Dioxide 33 mmol/L (21-32); Chloride 103 mmol/L (98-107); Creatine Kinase 796 U/L (30-223); Creatinine Clr Calc Pharmacy 151.9 ml/min; Est GFR (African American) > 150.0 ml/min; Est GFR (Non-African American) 130.7 ml/min; Globulin 2.7 gm/dl (2.5-4.0); Glucose 65 mg/dl (70-99(Fasting)); Magnesium 2.2 mg/dl (1.7-2.4); Potassium 2.9 mmol/L (3.5-5.1); Sodium 145 mmol/L (136-145); Total Protein 5.5 gm/dl (6.0-8.3)
[2024-01-10] MEDS: FAMOTIDINE 20MG IV PUSH 20 MG/5 ML SYR IV SCH (09:20)
[2024-01-10] MEDS: FOLIC ACID 1 MG TAB PO SCH (09:58)
[2024-01-10] MEDS: THIAMINE HCL 100 MG TAB PO SCH (09:58)
[2024-01-10] MEDS: cefTRIAXone SODIUM 2,000 MG/50 ML BAG IV SCH (14:01)
[2024-01-10] MEDS: chlordiazePOXIDE HCl 25 MG CAP PO SCH (19:34)
[2024-01-10] MEDS: GABAPENTIN 100 MG CAP PO SCH (20:53)
--- NOTE | 2024-01-11 16:58 | Hospitalist Progress Note ---
Date of Service January 11, 2024 Assessment & Plan (1) Alcohol withdrawal: Plan: Patient was found passed out in his neighbors yard on 01/08; he is tremulous on arrival with history of alcohol abuse negative urine tox, but abnormal ua and positive initial lyme screen for previous infection patient does not feel he has been treated in the past for Lyme disease will complete treatment course. prehospital abd pain and diarrhea, these sx have resolved, counselled to have oupt colonoscopy for screening metabolic encephalopathy on arrival, last drink of alcohol is 01/06 Megaloblastic anemia on arrival Medical alcohol level <10 A/P CT on arrival revealed nonobstructive stone in the right kidney and potential nonspecific colitis Head/neck CTs without acute findings continued on Ceftriaxone for concern of uti poa and untreated lyme disease, if urinary analysis does not reveal significant infection or confirmed infection we will just treat with Lyme's converting to doxycycline AWSS active withdrawal protocol with Ativan Librium taper, added bid gabapentin Vitamin B12 and folate supplements daily Seizure precautions (2) Hypokalemia: Plan: replete with supplementation (3) Rhabdomyolysis: Plan: Patient was down for an unknown period of time CK elevated at 1256 on arrival NSS 1000 mL IV in the ED Continue IVF resuscitation with Plasma-Lyte 100 mL/hr, with decreased urine output will have additional fluids (4) Anemia: Plan: Hgb 12.7 on arrival, no prior for comparison Haptoglobin and direct Francisco test ordered, pending Peripheral blood smear to assess for hemolysis No signs of active bleeding on clinical exam, but patient does have a bruise on his right forehead Plan Full code (must be revisited as patient does not exhibit capacity at this time, and there is no family at bedside) VTE PPx: SCDs; will hold chemical DVT PX for 24 hours in the setting of suspected head injury/trauma Admission and Anticipated Discharge Date Admission Date: January 09, 2024 Subjective Patient improved much less tremulous. Mother is at bedside and updated. Patient tolerating tapering of Librium institution and gabapentin. Patient's abdominal discomfort has resolved. He is not having any bowel movements today but he is not having diarrhea he initially complained of. Physical Exam Physical Exam: Patient is awake alert appropriate. He is slightly tremulous. He is tolerating his diet he has not yet been walking about physical therapy Occupational Therapy consults were ordered. Results & Data Results & Data Vital Signs (Past 12 Hours) Vital Signs Temp Pulse Resp BP Pulse Ox O2 Del Method 01/11/24 15:58 97.9 F 82 18 106/67 97 Room Air PG Care Time/CCT Total # of Minutes Spent Total Time Spent with Patient: Total time spent is greater than 50% in coordination of care (as documented) at patient's floor/unit and/or counseling patient: Coding Level of Care Code 27762 SUB INP/OBS CARE 2/35MIN Diagnoses Alcohol withdrawal F10.939 Hypokalemia E87.6 Rhabdomyolysis M62.82 Anemia D64.9
[2024-01-11] MEDS: POTASSIUM CHLORIDE CRTAB 20 MEQ TABCR PO ONE (17:03)
[2024-01-11] MEDS: chlordiazePOXIDE HCl 25 MG CAP PO ONE (17:03)
[2024-01-11] MEDS: chlordiazePOXIDE HCl 25 MG CAP PO SCH (20:37)
[2024-01-12 06:58] LABS: Basophils # (auto) 0.06 K/uL (0.00-0.20); Basophils % (auto) 0.8 %; Eosinophils % (auto) 2.6 %; Hemoglobin 9.2 g/dl (14.0-18.0); Immature Granulocytes # (auto) 0.13 K/uL (0.01-0.20); Immature Granulocytes % (auto) 1.7 %; Lymphocytes # (auto) 2.52 K/uL (1.20-3.40); Lymphocytes % (auto) 32.6 %; Mean Corpuscular Hemoglobin 35.8 pg (25.0-34.0); Mean Corpuscular Hgb Conc 34.1 g/dL (32.0-36.0); Mean Corpuscular Volume 105.1 fL (80.0-100.0); Mean Platelet Volume 11.7 fL (9.4-12.4); Monocytes # (auto) 0.99 K/uL (0.11-0.59); Monocytes % (auto) 12.8 %; Neutrophils # (auto) 3.82 K/uL (1.40-6.50); Neutrophils % (auto) 49.5 %; Nucleated RBC # (auto) 0.02 K/uL (0.00-0.12); Nucleated RBC % (auto) 0.3 %; Platelet Count 146 K/uL (130-400); RDW Coefficient of Variation 13.2 % (11.5-14.5); RDW Standard Deviation 50.7 fL (36.4-46.3); Red Blood Count 2.57 M/uL (4.70-6.10); White Blood Count 7.72 K/ul (4.8-10.8)
[2024-01-12] MEDS: LORazepam 1 MG in SYRINGE 0.5 ML IV PRN (07:38)
[2024-01-12 12:07] LABS: Albumin Level 2.7 gm/dl (3.4-5.0); Anion Gap 11 (3-11); Bilirubin,Total 1.2 mg/dl (0.2-1.0); Calcium 8.4 mg/dl (8.6-10.3); Carbon Dioxide 29 mmol/L (21-32); Chloride 106 mmol/L (98-107); Magnesium 1.7 mg/dl (1.7-2.4); Potassium 3.7 mmol/L (3.5-5.1); Sodium 146 mmol/L (136-145)
[2024-01-12 12:13] LABS: Alanine Aminotransferase 57 U/L (7-52); Albumin Globulin Ratio 1.1 (0.9-2); Alkaline Phosphatase 104 U/L (34-104); Aspartate Aminotransferase 89 U/L (13-39); Blood Urea Nitrogen 10 mg/dl (6-23); Creatine Kinase 330 U/L (30-223); Creatinine Clr Calc Pharmacy 163.3 ml/min; Est GFR (African American) > 150.0 ml/min; Est GFR (Non-African American) 134.7 ml/min; Globulin 2.5 gm/dl (2.5-4.0); Glucose 82 mg/dl (70-99(Fasting)); Total Protein 5.2 gm/dl (6.0-8.3)
--- NOTE | 2024-01-12 17:03 | Hospitalist Progress Note ---
Date of Service January 12, 2024 Assessment & Plan (1) Alcohol withdrawal: Plan: Patient was found passed out in his neighbors yard on 01/08; he is tremulous on arrival with history of alcohol abuse negative urine tox, but abnormal ua and positive initial lyme screen for previous infection patient does not feel he has been treated in the past for Lyme disease will complete treatment course. prehospital abd pain and diarrhea, these sx have resolved, counselled to have oupt colonoscopy for screening metabolic encephalopathy on arrival, last drink of alcohol is 01/06 Megaloblastic anemia on arrival Medical alcohol level <10 A/P CT on arrival revealed nonobstructive stone in the right kidney and potential nonspecific colitis Head/neck CTs without acute findings continued on Ceftriaxone for concern of uti poa and untreated lyme disease, if urinary analysis does not reveal significant infection or confirmed infection we will just treat with Lyme's converting to doxycycline Continue a WSS Librium taper as needed Ativan discontinuing gabapentin at this time Vitamin B12 and folate supplements daily Seizure precautions (2) Hypokalemia: Plan: replete with supplementation (3) Rhabdomyolysis: Plan: Patient was down for an unknown period of time CK elevated at 1256 on arrival Volume resuscitated with improvement (4) Anemia: Plan: Hgb 12.7 on arrival, no prior for comparison Haptoglobin and direct Francisco test ordered, pending Peripheral blood smear to assess for hemolysis not reveal any concern for hemolysis No signs of active bleeding on clinical exam, but patient does have a bruise on his right forehead Plan Full code confirmed by patient and mother at bedside VTE PPx: SCDs continue to encourage early ambulation once balance improved Admission and Anticipated Discharge Date Admission Date: January 09, 2024 Subjective 719 patient was still tremulous despite her Librium and and Ativan use. Subsequently attempts to add gabapentin were used to try to improve his withdrawal however it seems that the gabapentin has caused increased encephalopathy and gait instability subsequently this was discontinued on 01/12/2024. He is improved with exception of increased weakness which were hopefully attributing to medication. Physical Exam Physical Exam: Patient is still slightly tremulous he appears more sedate than the previous day he is discoordinated in bed. Card exam is regular lungs are clear, diminished at bases Extremities are with out edema Abdomen NABS soft Results & Data Results & Data Vital Signs (Past 12 Hours) Vital Signs Temp Pulse Pulse Resp BP Pulse Ox O2 Del Method 01/12/24 16:00 97.7 F 97 H 18 128/79 93 Room Air 01/12/24 11:49 97.7 F 96 H 20 130/94 92 Room Air 01/12/24 08:00 Room Air 01/12/24 08:00 69 01/12/24 07:23 97.9 F 91 H 18 103/68 99 Room Air PG Care Time/CCT Total # of Minutes Spent Total Time Spent with Patient: Total time spent is greater than 50% in coordination of care (as documented) at patient's floor/unit and/or counseling patient: Coding Level of Care Code 19901 SUB INP/OBS CARE 2/35MIN Diagnoses Alcohol withdrawal F10.939 Hypokalemia E87.6 Rhabdomyolysis M62.82 Anemia D64.9
[2024-01-13 07:00] LABS: Alanine Aminotransferase 55 U/L (7-52); Albumin Level 2.7 gm/dl (3.4-5.0); Alkaline Phosphatase 111 U/L (34-104); Anion Gap 5 (3-11); Aspartate Aminotransferase 74 U/L (13-39); Bilirubin,Total 1.1 mg/dl (0.2-1.0); Blood Urea Nitrogen 10 mg/dl (6-23); Calcium 8.7 mg/dl (8.6-10.3); Carbon Dioxide 32 mmol/L (21-32); Chloride 108 mmol/L (98-107); Creatinine Clr Calc Pharmacy 166.3 ml/min; Est GFR (African American) > 150.0 ml/min; Est GFR (Non-African American) 134.7 ml/min; Globulin 2.6 gm/dl (2.5-4.0); Glucose 90 mg/dl (70-99(Fasting)); Potassium 3.3 mmol/L (3.5-5.1); Sodium 145 mmol/L (136-145); Total Protein 5.3 gm/dl (6.0-8.3)
[2024-01-13 07:06] LABS: Hematocrit (blood only) 28.4 % (42.0-52.0); Hemoglobin 9.7 g/dl (14.0-18.0); Mean Corpuscular Hemoglobin 36.1 pg (25.0-34.0); Mean Corpuscular Hgb Conc 34.2 g/dL (32.0-36.0); Mean Corpuscular Volume 105.6 fL (80.0-100.0); Platelet Count 158 K/uL (130-400); RDW Coefficient of Variation 13.6 % (11.5-14.5); RDW Standard Deviation 51.1 fL (36.4-46.3); Red Blood Count 2.69 M/uL (4.70-6.10); White Blood Count 8.53 K/ul (4.8-10.8)
[2024-01-13] MEDS: POTASSIUM CHLORIDE CRTAB 20 MEQ TABCR PO SCH (10:25)
[2024-01-13] MEDS ORDERED: LORazepam 0.5 MG in SYRINGE 0.25 ML IV PRN (16:19)
--- NOTE | 2024-01-13 16:22 | Hospitalist Progress Note ---
Date of Service January 13, 2024 Assessment & Plan (1) Alcohol withdrawal: Plan: Patient was found passed out in his neighbors yard on 01/08; he is tremulous on arrival with history of alcohol abuse negative urine tox, but abnormal ua and positive initial lyme screen for previous infection patient does not feel he has been treated in the past for Lyme disease will complete treatment course transition to po Doxycycline . prehospital abd pain and diarrhea, these sx have resolved, counselled to have oupt colonoscopy for screening metabolic encephalopathy on arrival, last drink of alcohol is 01/06 Megaloblastic anemia on arrival Medical alcohol level <10 A/P CT on arrival revealed nonobstructive stone in the right kidney and potential nonspecific colitis Head/neck CTs without acute findings Pt has had persistent gait issues and weakness, will check MRI brain continue vitamin supplements and consider [facility] referral, gabapentin and librium stopped (2) Hypokalemia: Plan: replete with supplementation (3) Rhabdomyolysis: Plan: Patient was down for an unknown period of time CK elevated at 1256 on arrival-> 330 on 01/12/24 Volume resuscitated with improvement (4) Anemia: Plan: Hgb 12.7 on arrival, with volume resuscitation did drop to 9.2, has remained stable in the 9 gm range Haptoglobin and direct Francisco test ordered, pending Peripheral blood smear to assess for hemolysis not reveal any concern for hemolysis No signs of active bleeding on clinical exam, but patient does have a bruise on his right forehead Plan transfer to medical reviewed all meds and orders Full code confirmed by patient and mother at bedside VTE PPx: SCDs continue to encourage early ambulation once balance improved Admission and Anticipated Discharge Date Admission Date: January 09, 2024 Subjective pt still very tremulous, stopped gabapentin in hopes of improving, given poor performance consider physical rehab referral Physical Exam Physical Exam: pt still with minor confusion cardiac is regular lungs are clear some tremor Results & Data Results & Data Vital Signs (Past 12 Hours) Vital Signs Temp Pulse Pulse Resp BP Pulse Ox O2 Del Method 01/13/24 15:32 97.9 F 66 16 106/71 96 Room Air 01/13/24 14:58 65 01/13/24 11:05 97.9 F 77 18 101/70 95 Room Air 01/13/24 08:41 81 01/13/24 08:00 Room Air 01/13/24 07:40 97.7 F 90 18 109/73 96 Room Air Laboratory Results review cbc review chemisty PG Care Time/CCT Total # of Minutes Spent Total Time Spent with Patient: Total time spent is greater than 50% in coordination of care (as documented) at patient's floor/unit and/or counseling patient: Coding Level of Care Code 96122 SUB INP/OBS CARE 3/50MIN Diagnoses Alcohol withdrawal F10.939 Hypokalemia E87.6 Rhabdomyolysis M62.82 Anemia D64.9
[2024-01-13] MEDS: ONDANSETRON INJ 2 MG/ML 2 ML VIAL IV PRN (18:18)
[2024-01-13] MEDS: DOXYCYCLINE HYCLATE 100 MG CAP PO SCH (20:16)
[2024-01-13] MEDS: ACETAMINOPHEN 325 MG TAB PO PRN (23:57)
--- NOTE | 2024-01-14 12:56 | Hospitalist Progress Note ---
Date of Service January 14, 2024 Assessment & Plan (1) Alcohol withdrawal: Plan: Currently lethargic from benzodiazepine therapy which has been discontinued. Findings consistent with toxic encephalopathy. Brain MRI scan pending. Supportive care. Apparently he had findings consistent with metabolic encephalopathy on admissi (2) Hypokalemia: Plan: Mildly hypokalemic. Continue oral potassium replacement. Serial labs (3) Rhabdomyolysis: Plan: Mild. CK has improved to 330 and will eventually normalize. (4) Anemia: Plan: Mild. Chronic. Peripheral smear negative for autoimmune hemolytic anemia. No overt melena or hematochezia. Will follow. Plan Hopeful discharge to home tomorrow, January 14 Admission and Anticipated Discharge Date Admission Date: January 09, 2024 Subjective Lethargic, apparently from scheduled Ativan dosing producing toxic encephalopathy. Brain MRI scan results pending. Ativan has been discontinued. Lyme IgM is negative and there does not appear to be any reason for continue doxycycline dosing. Peripheral blood smear is negative for autoimmune hemolytic anemia. Potassium was slightly low at 3.3 but he remains on oral potassium replacement. CK is down to 330 and will eventually normalize. Hopefully he can go home tomorrow, January 14 Review of Systems 2 Review of Systems: Constitutional-no fever or chills ENT-no blurred vision, no double vision, no epistaxis, no sore throat Respiratory-no cough, no wheezing, no shortness of breath Cardiac-no palpitations, no chest pain, no syncope GI-no nausea, vomiting, diarrhea, melena, hematochezia -no urinary retention, no urinary incontinence, no dysuria, no hematuria Musculoskeletal-no joint pain, no muscle tenderness Skin-no bruising, no rashes, no pruritus Neuro-no isolated weakness, no paresthesia Psych-lethargic Physical Exam 2 Physical Exam: General-lethargic but awake. No fever, no chills HEENT-head atraumatic and normocephalic, pupils equal and reactive to light, extraocular muscles intact Neck-no lymphadenopathy or thyromegaly, trachea midline Chest-clear to auscultation. No rales, wheezing or rhonchi Cardiac-regular rate and rhythm, normal S1 and S2 Abdomen-normal bowel sounds, no hepatosplenomegaly Extremities-no cyanosis, clubbing, or edema Neuro-cranial nerves II through XII intact, motor and sensory function within normal limits, strength symmetrical, no focal deficits Psych-lethargic from benzodiazepine therapy Results & Data Results & Data Vital Signs (Past 12 Hours) Vital Signs Temp Pulse Pulse Resp BP Pulse Ox O2 Del Method 01/14/24 11:31 Room Air 01/14/24 07:37 37.2 C 97 H 18 100/66 94 Room Air 01/14/24 07:36 99 H 01/14/24 03:48 37.6 C H 104 H 18 108/72 93 Room Air Laboratory Results 01/13/24 06:23 01/13/24 06:23 PG Care Time/CCT Total # of Minutes Spent Total Time Spent with Patient: Total time spent is greater than 50% in coordination of care (as documented) at patient's floor/unit and/or counseling patient: Coding Level of Care Code 10833 SUB INP/OBS CARE 3/50MIN Diagnoses Alcohol withdrawal F10.939 Hypokalemia E87.6 Rhabdomyolysis M62.82 Anemia D64.9
--- NOTE | 2024-01-14 13:23 | Magnetic Resonance Report ---
Brain MRI WITHOUT CONTRAST HISTORY: persistent dysmetria TECHNIQUE: Multiplanar multisequence MRI of the brain was performed without the use of contrast. The patient was unable to complete the examination. Only the sagittal T1, DWI, and ADC sequences were obt ained. COMPARISON STUDY: Head CT 01/09/2024. FINDINGS: Motion artifact within the sagittal T1 sequences results in suboptimal evaluation. However, the midline structures appear grossly intact. 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 No areas of restricted diffusion to suggest an acute infarctio n. No definite mass or midline shift. The ventricles are normal in size. IMPRESSION: The study was limited from a technical standpoint as the patient was unable to complete the examinati on. No acute infarct identified. ACT 112: Negative or not required by law. Electronically signed by: Rusty Hills M.D. 01/14/2024 1:22 PM
[2024-01-15 10:14] LABS: BUN Creatinine Ratio 37.3 (10-20); Calcium 9.1 mg/dl (8.6-10.3); Creatinine Clr Calc Pharmacy 123.3 ml/min; Est GFR (African American) 141.2 ml/min; Est GFR (Non-African American) 121.9 ml/min; Potassium 3.3 mmol/L (3.5-5.1)
--- NOTE | 2024-01-15 11:09 | XRay Report ---
XR chest 1V portable HISTORY: 53 years-old Male hypoxia acute shortness of breath COMPARISON: 01/09/2024 TECHNIQUE: AP view of the chest FINDINGS: Unchanged cardiomediastinal and hilar silhouettes. Gaseous distention of the stomach. Mild subsegment al bibasilar densities. No pneumothorax, pleural effusion or overt pulmonary edema. Degenerative lucas ges of the shoulders and spine. IMPRESSION: Mild bibasilar densities are favored to represent atelectasis. ACT 112: Negative or not required by law. The above report was generated using voice recognition software. It may contain grammatical, syntax o r spelling errors. Electronically signed by: Parminder Barriga M.D. 01/15/2024 11:07 AM
[2024-01-15] MEDS: levoFLOXacin 750 MG TAB PO SCH (12:21)
[2024-01-15] MEDS: D5W AND 1/2NSS + 20MEQ KCL 20 MEQ/1,000 ML BAG IV SCH (14:15)
[2024-01-15] MEDS: D5NSS + 20MEQ KCL 20 MEQ/1,000 ML BAG IV SCH (14:22)
--- NOTE | 2024-01-15 15:28 | Hospitalist Progress Note ---
Date of Service January 15, 2024 Assessment & Plan (1) Lethargy: Plan: Persistent, despite discontinuation of benzodiazepines and other CHIEF OF HOSPITAL MEDICINE affecting medications. Neurology consultation requested. Brain MRI scan compromised by motion artifact but no overt ischemic CVA seen. (2) Alcohol withdrawal: Plan: Lethargy initially thought to be due to benzodiazepine therapy which has been discontinued. However, he remains lethargic. Brain MRI scan compromised by motion artifact but no overt ischemic CVA. Supportive care. (3) Hypokalemia: Plan: Mildly hypokalemic. Continue oral and intravenous potassium replacement. Serial labs (4) Rhabdomyolysis: Plan: Mild on admission. CK has now normalized. (5) Anemia: Plan: Mild. Chronic. Peripheral smear negative for autoimmune hemolytic anemia. No overt melena or hematochezia. Will follow. Plan It appears he is going to need placement. Admission and Anticipated Discharge Date Admission Date: January 09, 2024 Subjective The patient remains lethargic without obvious reason. Brain MRI scan was compromised by motion artifact but no overt ischemic CVA seen. Medications reviewed. He is currently on no CHIEF OF HOSPITAL MEDICINE affecting medications. Ammonia level is normal. Oral intake is poor. IV fluids with half-normal saline and potassium started. He is on low-flow oxygen but this may simply be due to atelectasis. Review of Systems 2 Review of Systems: Constitutional-no fever or chills. Lethargic ENT-no blurred vision, no double vision, no epistaxis, no sore throat Respiratory-no cough, no wheezing, no shortness of breath Cardiac-no palpitations, no chest pain, no syncope GI-no nausea, vomiting, diarrhea, melena, hematochezia -no urinary retention, no urinary incontinence, no dysuria, no hematuria Musculoskeletal-no joint pain, no muscle tenderness Skin-no bruising, no rashes, no pruritus Neuro-no isolated weakness, no paresthesia Psych-lethargic Physical Exam 2 Physical Exam: General-lethargic but awake. No fever, no chills HEENT-head atraumatic and normocephalic, pupils equal and reactive to light, extraocular muscles intact Neck-no lymphadenopathy or thyromegaly, trachea midline Chest-clear to auscultation. No rales, wheezing or rhonchi Cardiac-regular rate and rhythm, normal S1 and S2 Abdomen-normal bowel sounds, no hepatosplenomegaly Extremities-no cyanosis, clubbing, or edema Neuro-cranial nerves II through XII intact, motor and sensory function within normal limits, strength symmetrical, no focal deficits Psych-lethargic Results & Data Results & Data Vital Signs (Past 12 Hours) Vital Signs Temp Pulse Pulse Resp BP Pulse Ox O2 Del Method 01/15/24 11:50 36.2 C L 98 H 16 104/73 93 Nasal Cannula 01/15/24 08:35 91 Nasal Cannula 01/15/24 08:35 85 L Room Air 01/15/24 08:00 Nasal Cannula 01/15/24 07:30 36.6 C 94 H 20 99/67 L 93 Nasal Cannula 01/15/24 07:19 110 H O2 Flow Rate 01/15/24 11:50 2 01/15/24 08:35 2 01/15/24 08:35 01/15/24 08:00 2 01/15/24 07:30 1 01/15/24 07:19 Laboratory Results Abnormal lab results 01/15/24 Range/Units 09:37 Sodium 146 H (136-145) mmol/L Potassium 3.3 L (3.5-5.1) mmol/L Creatinine 0.51 L (0.6-1.4) mg/dl BUN/Creatinine Ratio 37.3 H (10-20) Glucose 110 H (70-99(Fasting)) mg/dl 01/13/24 06:23 01/15/24 09:37 PG Care Time/CCT Total # of Minutes Spent Total Time Spent with Patient: Total time spent is greater than 50% in coordination of care (as documented) at patient's floor/unit and/or counseling patient: Coding Level of Care Code 57436 SUB INP/OBS CARE 3/50MIN Diagnoses Lethargy R53.83 Alcohol withdrawal F10.939 Hypokalemia E87.6 Rhabdomyolysis M62.82 Anemia D64.9
[2024-01-15 15:46] LABS: Cdiff Toxin B Gene (2yr or >) Positive Cdiff Gene (Neg)
[2024-01-15 16:16] LABS: Cdiff Antigen Positive; Cdiff Toxin A+B Positive Cdiff Toxin (Negative)
[2024-01-16] MEDS: LACTATED RINGER'S 500 ML IV ONE (00:30)
[2024-01-16] MEDS: POTASSIUM CHLORIDE / WTR 10 MEQ/100 ML PLCT IV SCH (00:45)
[2024-01-16] MEDS: MAGNESIUM SULFATE / D5W 1 GM/100 ML BAG IV SCH (00:45)
[2024-01-16 01:23] LABS: BUN Creatinine Ratio 38.9 (10-20); Calcium 8.6 mg/dl (8.6-10.3); Creatinine Clr Calc Pharmacy 116.5 ml/min; Magnesium 1.6 mg/dl (1.7-2.4); Potassium 3.2 mmol/L (3.5-5.1)
--- NOTE | 2024-01-16 04:18 | Communication Note ---
Date of Service: January 16, 2024 I was notified by nursing that patient had flipped into afib with rates of 90- 110 at around 11:30pm. I ordered an EKG which confirmed atrial fibrillation. I ordered STAT labs including metabolic panel and magnesium, per chart review patient has been receiving ongoing potassium supplementation as his K was 3.3. Nursing later notified that his HR was reaching up to 150 as a maximum with a blood pressure of 90s systolic. I ordered a 500mL bolus of IV fluids and after receiving lab results, ordered an additional 40meq of KCl and 2g magnesium sulfate. Resident Activity Tracking Resident Involvement: Resident Care Provided Care Provided: Adult [facility]
[2024-01-16 08:20] LABS: Anion Gap 6 (3-11); Blood Urea Nitrogen 16 mg/dl (6-23); Carbon Dioxide 27 mmol/L (21-32); Chloride 110 mmol/L (98-107); Creatine Kinase 31 U/L (30-223); Creatinine Clr Calc Pharmacy 174.7 ml/min; Est GFR (African American) > 150.0 ml/min; Est GFR (Non-African American) 134.7 ml/min; Glucose 113 mg/dl (70-99(Fasting)); Potassium 3.4 mmol/L (3.5-5.1); Sodium 143 mmol/L (136-145)
--- NOTE | 2024-01-16 08:34 | Neurology Consultation ---
Date of Consultation January 16, 2024 Assessment & Plan (1) Alcohol withdrawal: (2) Encephalopathy: Plan 53-year-old male who was found down with rhabdomyolysis, hypokalemia, altered mental status in the context of alcohol use disorder, probable alcohol withdrawal initially, persistent lethargy, although improved this morning. Patient does appear to have a mild encephalopathy characterized by inattentiveness, slowed speech, mild perseveration, and poor memory. He has gaze evoked nystagmus. Movements are not grossly ataxic although examination is somewhat limited. He does not have signs or symptoms suggestive of seizures or encephalitis. No evidence of acute or subacute stroke on recent limited brain MRI. He apparently had an episode of atrial fibrillation overnight although his current examination is not highly suggestive of stroke. Continue medical monitoring, management of atrial fibrillation. Given this patient's history of alcohol use disorder, persistent encephalopathy, and nystagmus, he may have Wernicke encephalopathy. However, his lethargy and encephalopathy seem to be improving. Agree with supplemental thiamine, folate. It is interesting that his vitamin B12 level was normal in spite of his malnourished appearance. Consider rechecking a vitamin B12 level as well as methylmalonic acid level. He should not require additional outpatient neurology follow-up. He will need ongoing care for alcohol use disorder. Please call with any questions. History of Present Illness Reason for Consultation: Persistent encephalopathy Requesting Physician: Kenny Attending Physician: Zack Cox MD History of Present Illness The patient is a 53-year-old male who had presented to the emergency department on January 09, 2024. He was found down by neighbors under a mei outside of his home. He was amnestic and unable to provide a reliable history, although did endorse daily alcohol consumption. A CT of the head was negative for hemorrhage or acute process. Initial lab evaluation revealed hypokalemia, transaminitis, normal ammonia level, elevated CK, normal thyroid. A urine tox screen was unremarkable, ethyl alcohol level less than 10. He has a macrocytic anemia, normal platelet count. Hypokalemia improving, elevated CK resolved. He has a normal vitamin B12 level. A limited brain MRI was completed January 14, 2024. No evidence of acute infarct on DWI. Sagittal T1 images completed although significantly degraded by motion artifact. There appears to be an element of cerebellar atrophy, no hydrocephalus. No other gross abnormalities observed on localizer sequences, ADC map. No other sequences completed. He has been receiving supportive medical care in the context of alcohol withdrawal but has remained lethargic and spite of discontinuation of sedating medications. He was noted to have an episode of atrial fibrillation last night. The patient was initially sonorous although readily awakened from sleep. He denies any complaints such as headache, pain, vision disturbance, dizziness, weakness or sensory loss. He is nonagitated, modestly inattentive and slow to answer questions and is an unreliable historian at this time. See examination below for further details. Allergies Allergy/AdvReac Type Severity Reaction Status Date / Time No Known Allergies Allergy Verified 01/09/24 15:13 Home Medications Medication Instructions Recorded Confirmed Type No Known Home Medications 01/09/24 01/09/24 History Patient History Social History Smoking Status: Unknown if ever smoked Hx Alcohol Use: Yes Hx Substance Use: No (unknown) Preferred Language: Turkish Communication Ability: Effective Radiology Transporter Required: No Beliefs That Will Affect Care: None Feels Safe at Home: Declines to Answer Assistive Devices: None Review of Systems Constitutional: no fever and no chills Eyes: no blind spots and no diplopia Ear, Nose, Mouth, Throat: no hearing loss Respiratory: no cough and no dyspnea Cardiovascular: no chest pain and no palpitations Gastrointestinal: no nausea and no vomiting Genitourinary: no dysuria Musculoskeletal: no myalgia Integumentary: no rash and no pruritus Neurologic: as per Subjective / HPI Psychiatric: no depression, no anxiety and no hallucinations Hematologic / Lymphatic: no easy bleeding and no easy bruising Exam (Neuro) Constitutional: well developed and + thin; no acute distress Eyes: normal visual schroeder by confrontation, PERRL, EOM intact bilaterally and + nystagmus (Horizontal gaze evoked nystagmus noted) Neurologic: Oriented to:: Person; negative Place or Time Memory: negative Short Term Intact Attention: negative Span Intact or Concentration Intact Speech Fluency: Dysarthria (Mild) and Slowed Speech Aphasia: negative Aphasia Fund of Knowledge: Vocabulary; negative Current Events Cranial Nerves: Normal II, III, IV, , V, VII, VIII, IX, X, XI and XII Motor Strength: Normal Lower Extremities and Normal Upper Extremities Motor Tone: Normal Lower Extremities and Normal Upper Extremities Muscle Bulk/Involuntary Movements: No Involuntary Movements and Muscle Atrophy (Mild atrophy of the quadriceps bilaterally) Sensation: Light Touch Intact and Pain/Temperature Intact; negative Proprioception Intact Coordination: Finger-Nose Abnormal and Heel-Hunter Abnormal; negative Dysdiadochokinesia Deep Tendon Reflexes: Rt Triceps: 1+, Lt Triceps: 1+, Rt Biceps: 1+, Lt Biceps: 1+, Rt Brachioradialis: 1+, Lt Brachioradialis: 1+, Rt Patellar: 2+, Lt Patellar: 2+, Rt Ankle: 1+ and Lt Ankle: 1+ Special Tests: negative Babinski Present Details: Patient is mildly inattentive, exhibits slowed, slightly dysarthric speech. He is not oriented to day of the week or month. He was a little perseverative when following simple commands such as [id number]. He did not confabulate. He does not exhibit any tremor or myoclonus. He does have gaze evoked nystagmus. He expressed a desire for discharge from the hospital. Results & Data Vital Signs (Past 12 Hours) Vital Signs Temp Pulse Pulse Resp BP Pulse Ox O2 Del Method 01/16/24 07:51 36.3 C L 81 18 117/72 96 Room Air 01/16/24 07:37 77 01/16/24 03:00 36.5 C 92 H 17 114/78 96 Room Air 01/15/24 23:00 36.7 C 92 H 18 114/78 97 Nasal Cannula 01/15/24 22:00 85 O2 Flow Rate 01/16/24 07:51 01/16/24 07:37 01/16/24 03:00 01/15/24 23:00 2 01/15/24 22:00 Coding Level of Care Code 57218 INT INP/OBS CARE 3/75MIN Diagnoses Alcohol withdrawal F10.939 Encephalopathy G93.40 Time Spent (min) 90 Comment Total time includes patient contact, chart review, counseling, note preparation
[2024-01-16] MEDS: MAGNESIUM OXIDE 400 MG TAB PO SCH (11:27)
--- NOTE | 2024-01-16 14:20 | Hospitalist Progress Note ---
Date of Service January 16, 2024 Assessment & Plan (1) Lethargy: Plan: Possible Warnicke's encephalopathy per neurology consultation. Supportive care. Brain MRI scan compromised by motion artifact but no overt ischemic CVA seen. 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 However, he remains encephalopathic. Brain MRI scan compromised by motion artifact but no overt ischemic CVA. Supportive care. (3) Hypokalemia: Plan: Corrected with oral and intravenous replacement. Serial labs. (4) Rhabdomyolysis: Plan: Mild on admission. CK has now normalized. (5) Anemia: Plan: Mild. Chronic. Peripheral smear negative for autoimmune hemolytic anemia. No overt melena or hematochezia. Will follow. (6) Atrial fibrillation: Plan: Transient. He appears to have converted back to normal sinus rhythm. Thyroid profile is normal. Cardiac echo report is pending. Telemetry (7) C. difficile enteritis: Plan: Oral vancomycin therapy has been started. Day 1 Plan Rehab placement at discharge. He is now medically stable for discharge. Admission and Anticipated Discharge Date Admission Date: January 09, 2024 Subjective He remains encephalopathic but seems to be more alert and able to converse today. He developed rapid atrial fibrillation last evening but appears to have converted back to normal sinus rhythm at this time. Repeat EKG is pending. Free T3 and free T4 levels are normal. Cardiac echo report pending. C. difficile toxin assay is positive although he denies frequent diarrhea to me. He is now on oral vancomycin therapy. Review of Systems 2 Review of Systems: Constitutional-no fever or chills. He remains encephalopathic but is conversant. HEENTno blurred vision, no double vision, no epistaxis, no sore throat Respiratory-no cough, no wheezing, no shortness of breath Cardiac-no palpitations, no chest pain, no syncope GI-no nausea, vomiting, diarrhea, melena, hematochezia -no urinary retention, no urinary incontinence, no dysuria, no hematuria Musculoskeletal-no joint pain, no muscle tenderness Skin-no bruising, no rashes, no pruritus Neuro-generalized weakness. Ataxic gait per physical therapy notes. Psych-mildly encephalopathic Physical Exam 2 Physical Exam: General-encephalopathic but awake. No fever, no chills HEENT-head atraumatic and normocephalic, pupils equal and reactive to light, extraocular muscles intact Neck-no lymphadenopathy or thyromegaly, trachea midline Chest-clear to auscultation. No rales, wheezing or rhonchi Cardiac-regular rate and rhythm, normal S1 and S2 Abdomen-normal bowel sounds, no hepatosplenomegaly Extremities-no cyanosis, clubbing, or edema Neuro-cranial nerves II through XII intact, motor and sensory function within normal limits, strength symmetrical with generalized weakness, ataxic gait, no focal deficits Psych-encephalopathic with slow mentation but able to converse Results & Data Results & Data Vital Signs (Past 12 Hours) Vital Signs Temp Pulse Pulse Resp BP Pulse Ox O2 Del Method 01/16/24 07:51 36.3 C L 81 18 117/72 96 Room Air 01/16/24 07:37 77 01/16/24 03:00 36.5 C 92 H 17 114/78 96 Room Air Laboratory Results 01/13/24 06:23 01/16/24 06:56 PG Care Time/CCT Total # of Minutes Spent Total Time Spent with Patient: Total time spent is greater than 50% in coordination of care (as documented) at patient's floor/unit and/or counseling patient: Coding Level of Care Code 38736 SUB INP/OBS CARE 3/50MIN Diagnoses Lethargy R53.83 Alcohol withdrawal F10.939 Hypokalemia E87.6 Rhabdomyolysis M62.82 Anemia D64.9 Atrial fibrillation I48.91 C. difficile enteritis A04.72
[2024-01-16] MEDS: CHERRY SYRUP 5 ML UDP PO SCH (17:08)
[2024-01-16] MEDS: VANCOMYCIN HCL 250 MG/5 ML SOLN PO SCH (17:09)
--- NOTE | 2024-01-16 19:48 | Electrocardiogram Report ---
Test Reason : Blood Pressure : / mmHG Vent. Rate : 114 BPM Atrial Rate : 108 BPM P-R Int : 000 ms QRS Dur : 088 ms QT Int : 362 ms P-R-T Axes : 000 065 079 degrees QTc Int : 498 ms Poor data quality, interpretation may be adversely affected Atrial fibrillation with rapid ventricular response Abnormal ECG When compared with ECG of 09-JAN-2024 11:17, Atrial fibrillation has replaced Sinus rhythm T wave amplitude has decreased in Anterior leads Confirmed by Renny Angelo ([id number] on 01/16/2024 7:48:03 PM Referred By: REFERRED SELF Confirmed By:Renny Angelo
--- NOTE | 2024-01-16 20:37 | XCELERA ---
[id number] \\[email or web address]_[id number]
[2024-01-16] MEDS: POTASSIUM CHLORIDE 10 MEQ TABCR PO SCH (21:13)
[2024-01-17 07:27] LABS: Basophils # (auto) 0.04 K/uL (0.00-0.20); Basophils % (auto) 0.4 %; Eosinophils % (auto) 3.3 %; Hematocrit (blood only) 30.6 % (42.0-52.0); Immature Granulocytes # (auto) 0.05 K/uL (0.01-0.20); Immature Granulocytes % (auto) 0.5 %; Lymphocytes # (auto) 2.28 K/uL (1.20-3.40); Lymphocytes % (auto) 24.8 %; Mean Corpuscular Hemoglobin 35.2 pg (25.0-34.0); Mean Corpuscular Hgb Conc 32.7 g/dL (32.0-36.0); Mean Corpuscular Volume 107.7 fL (80.0-100.0); Mean Platelet Volume 12.3 fL (9.4-12.4); Monocytes % (auto) 9.8 %; Neutrophils # (auto) 5.64 K/uL (1.40-6.50); Neutrophils % (auto) 61.2 %; Platelet Count 293 K/uL (130-400); RDW Coefficient of Variation 13.9 % (11.5-14.5); Red Blood Count 2.84 M/uL (4.70-6.10); White Blood Count 9.21 K/ul (4.8-10.8)
[2024-01-17 07:46] LABS: Anion Gap 5 (3-11); BUN Creatinine Ratio 23.1 (10-20); Blood Urea Nitrogen 9 mg/dl (6-23); Calcium 7.9 mg/dl (8.6-10.3); Carbon Dioxide 26 mmol/L (21-32); Chloride 111 mmol/L (98-107); Est GFR (African American) > 150.0 ml/min; Est GFR (Non-African American) 136.1 ml/min; Glucose 93 mg/dl (70-99(Fasting)); Potassium 3.2 mmol/L (3.5-5.1); Sodium 142 mmol/L (136-145)
--- NOTE | 2024-01-17 08:22 | Electrocardiogram Report ---
Test Reason : Blood Pressure : / mmHG Vent. Rate : 079 BPM Atrial Rate : 079 BPM P-R Int : 212 ms QRS Dur : 070 ms QT Int : 416 ms P-R-T Axes : 048 070 075 degrees QTc Int : 477 ms Sinus rhythm with 1st degree A-V block Otherwise normal ECG When compared with ECG of 15-JAN-2024 23:41, Sinus rhythm has replaced Atrial fibrillation HR has decreased by 34 bpm Confirmed by Neal Lamb ([id number] on 01/17/2024 8:21:37 AM Referred By: REFERRED SELF Confirmed By:Neal Lamb
--- NOTE | 2024-01-17 12:40 | Hospitalist Progress Note ---
Date of Service January 17, 2024 Assessment & Plan (1) Lethargy: Plan: Possible Warnicke's encephalopathy per neurology consultation. Supportive care. Brain MRI scan compromised by motion artifact but no overt ischemic CVA seen. 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 However, he remains encephalopathic. Brain MRI scan compromised by motion artifact but no overt ischemic CVA. Supportive care. (3) Hypokalemia: Plan: Potassium is low again. Oral potassium dosage has been increased today, January 16. Serial labs. (4) Rhabdomyolysis: Plan: Mild on admission. CK has now normalized. (5) Anemia: Plan: Mild. Chronic. Peripheral smear negative for autoimmune hemolytic anemia. No overt melena or hematochezia. Will follow. (6) Atrial fibrillation: Plan: Transient. He appears to have converted back to normal sinus rhythm. Thyroid profile is normal. Cardiac echo report is pending. Telemetry (7) C. difficile enteritis: Plan: Continue oral vancomycin therapy, day 2 Plan Rehab placement pending. He is medically stable. Admission and Anticipated Discharge Date Admission Date: January 09, 2024 Subjective Awake and alert but with slowed mentation. Neurology has suggested that he may have Warnicke's encephalopathy. He is drooling but seems to be oriented x 3. [facility] health placement is pending. Potassium remains low at 3.2. Dosage increased orally. Continue oral vancomycin, day 2 of 10. Sodium has improved down to 142. Will discontinue IV fluids today, January 16 Review of Systems 2 Review of Systems: Constitutional-no fever or chills. He remains encephalopathic but is conversant. HEENTno blurred vision, no double vision, no epistaxis, no sore throat Respiratory-no cough, no wheezing, no shortness of breath Cardiac-no palpitations, no chest pain, no syncope GI-no nausea, vomiting, diarrhea, melena, hematochezia -no urinary retention, no urinary incontinence, no dysuria, no hematuria Musculoskeletal-no joint pain, no muscle tenderness Skin-no bruising, no rashes, no pruritus Neuro-generalized weakness. Ataxic gait per physical therapy notes. Psych-mildly encephalopathic Physical Exam 2 Physical Exam: General-encephalopathic but awake. No fever, no chills HEENT-head atraumatic and normocephalic, pupils equal and reactive to light, extraocular muscles intact Neck-no lymphadenopathy or thyromegaly, trachea midline Chest-clear to auscultation. No rales, wheezing or rhonchi Cardiac-regular rate and rhythm, normal S1 and S2 Abdomen-normal bowel sounds, no hepatosplenomegaly Extremities-no cyanosis, clubbing, or edema Neuro-cranial nerves II through XII intact, motor and sensory function within normal limits, strength symmetrical with generalized weakness, ataxic gait, no focal deficits Psych-encephalopathic with slow mentation but able to converse Results & Data Results & Data Vital Signs (Past 12 Hours) Vital Signs Temp Pulse Pulse Resp BP BP Pulse Ox 01/17/24 11:00 36.4 C L 81 18 108/80 96 01/17/24 10:57 01/17/24 07:52 36.6 C 86 18 92/65 L 95 01/17/24 07:14 76 01/17/24 04:27 36.8 C 75 20 128/82 97 01/17/24 00:58 36.8 C 98 H 20 126/64 100 O2 Del Method O2 Flow Rate 01/17/24 11:00 Room Air 01/17/24 10:57 Nasal Cannula 2 01/17/24 07:52 Nasal Cannula 2 01/17/24 07:14 01/17/24 04:27 Nasal Cannula 2 01/17/24 00:58 Nasal Cannula 2 Laboratory Results 01/17/24 06:51 01/17/24 06:51 PG Care Time/CCT Total # of Minutes Spent Total Time Spent with Patient: Total time spent is greater than 50% in coordination of care (as documented) at patient's floor/unit and/or counseling patient: Coding Level of Care Code 78538 SUB INP/OBS CARE 3/50MIN Diagnoses Lethargy R53.83 Alcohol withdrawal F10.939 Hypokalemia E87.6 Rhabdomyolysis M62.82 Anemia D64.9 Atrial fibrillation I48.91 C. difficile enteritis A04.72
[2024-01-17] MEDS: VANCOMYCIN HCL 250 MG/5 ML SOLN PO SCH (12:43)
[2024-01-17] MEDS: VANCOMYCIN HCL 125 MG/2.5ML SOLN PO SCH (18:15)
[2024-01-17] MEDS: POTASSIUM CHLORIDE CRTAB 20 MEQ TABCR PO SCH (21:21)
[2024-01-18 07:44] LABS: Basophils # (auto) 0.06 K/uL (0.00-0.20); Basophils % (auto) 0.8 %; Eosinophils # (auto) 0.19 K/uL (0.00-0.50); Eosinophils % (auto) 2.4 %; Hematocrit (blood only) 28.7 % (42.0-52.0); Hemoglobin 9.5 g/dl (14.0-18.0); Immature Granulocytes # (auto) 0.06 K/uL (0.01-0.20); Immature Granulocytes % (auto) 0.8 %; Lymphocytes # (auto) 1.75 K/uL (1.20-3.40); Lymphocytes % (auto) 22.3 %; Mean Corpuscular Hemoglobin 34.4 pg (25.0-34.0); Mean Corpuscular Hgb Conc 33.1 g/dL (32.0-36.0); Mean Platelet Volume 12.2 fL (9.4-12.4); Monocytes # (auto) 0.67 K/uL (0.11-0.59); Monocytes % (auto) 8.5 %; Neutrophils # (auto) 5.13 K/uL (1.40-6.50); Neutrophils % (auto) 65.2 %; Platelet Count 302 K/uL (130-400); RDW Coefficient of Variation 13.7 % (11.5-14.5); RDW Standard Deviation 51.8 fL (36.4-46.3); Red Blood Count 2.76 M/uL (4.70-6.10); White Blood Count 7.86 K/ul (4.8-10.8)
[2024-01-18 08:46] LABS: Anion Gap 6 (3-11); Blood Urea Nitrogen 6 mg/dl (6-23); Calcium 8.1 mg/dl (8.6-10.3); Carbon Dioxide 25 mmol/L (21-32); Chloride 112 mmol/L (98-107); Creatinine Clr Calc Pharmacy 175.6 ml/min; Est GFR (African American) > 150.0 ml/min; Est GFR (Non-African American) 134.7 ml/min; Glucose 89 mg/dl (70-99(Fasting)); Potassium 2.9 mmol/L (3.5-5.1); Sodium 143 mmol/L (136-145)
[2024-01-18] MEDS: POTASSIUM CHLORIDE / WTR 10 MEQ/100 ML PLCT IV SCH (10:13)
[2024-01-18] MEDS: ENOXAPARIN INJ 40 MG/0.4 ML SYR SQ SCH (10:15)
[2024-01-18] MEDS: SODIUM CHLORIDE 0.9% 1,000 ML IV SCH (11:06)
--- NOTE | 2024-01-18 14:11 | Hospitalist Progress Note ---
Date of Service January 18, 2024 Assessment & Plan (1) Lethargy: Plan: Possible Warnicke's encephalopathy per neurology consultation. Supportive care. Brain MRI scan compromised by motion artifact but no overt ischemic CVA seen. 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 Improving (2) Alcohol withdrawal: Plan: Lethargy initially thought to be due to benzodiazepine therapy which has been discontinued. However, he remained encephalopathic. Brain MRI scan compromised by motion artifact but no overt ischemic CVA. Supportive care. Possible associated Warnicke's encephalopathy. Improving (3) Hypokalemia: Plan: Potassium remains low despite oral replacement. Parenteral replacement now ordered. Serial labs. Serial labs. (4) Rhabdomyolysis: Plan: Mild on admission. CK has now normalized. (5) Anemia: Plan: Mild. Chronic. Peripheral smear negative for autoimmune hemolytic anemia. No overt melena or hematochezia. Will follow. (6) Atrial fibrillation: Plan: Transient. He has converted back to normal sinus rhythm. Thyroid profile is normal. Cardiac echo report reveals normal left ventricular ejection fraction with evidence of diastolic dysfunction. No significant valvular abnormalities. Telemetry (7) C. difficile enteritis: Plan: Continue oral vancomycin therapy, day 3 10 Plan Rehab placement apparently denied by insurance. Peer to peer phone call has been made and awaiting return call. He is medically stable. Admission and Anticipated Discharge Date Admission Date: January 09, 2024 Subjective Mental status appears to have improved although is not at baseline yet. Peer to peer phone call placed to insurance company due to apparent denial of IPR placement. Awaiting return call. Hypokalemia persists despite oral replacement. Parenteral replacement ordered and will recheck potassium level later today. Cardiac echo reveals normal left ventricular ejection fraction with evidence of diastolic dysfunction. Nursing states that he had a large loose bowel movement today. He remains on oral vancomycin, day 3 of 10. Review of Systems 2 Review of Systems: Constitutional-no fever or chills. He remains encephalopathic but is conversant and overall somewhat improved. HEENTno blurred vision, no double vision, no epistaxis, no sore throat Respiratory-no cough, no wheezing, no shortness of breath Cardiac-no palpitations, no chest pain, no syncope GI-no nausea, vomiting, diarrhea, melena, hematochezia -no urinary retention, no urinary incontinence, no dysuria, no hematuria Musculoskeletal-no joint pain, no muscle tenderness Skin-no bruising, no rashes, no pruritus Neuro-generalized weakness. Ataxic gait per physical therapy notes. Psych-mildly encephalopathic Physical Exam 2 Physical Exam: General-encephalopathic but awake. No fever, no chills HEENT-head atraumatic and normocephalic, pupils equal and reactive to light, extraocular muscles intact Neck-no lymphadenopathy or thyromegaly, trachea midline Chest-clear to auscultation. No rales, wheezing or rhonchi Cardiac-regular rate and rhythm, normal S1 and S2 Abdomen-normal bowel sounds, no hepatosplenomegaly Extremities-no cyanosis, clubbing, or edema Neuro-cranial nerves II through XII intact, motor and sensory function within normal limits, strength symmetrical with generalized weakness, ataxic gait, no focal deficits Psych-encephalopathic with slow mentation but able to converse Results & Data Results & Data Vital Signs (Past 12 Hours) Vital Signs Temp Pulse Pulse Resp BP BP Pulse Ox 01/18/24 13:00 96 H 01/18/24 10:51 36.7 C 92 H 18 112/77 96 01/18/24 08:00 01/18/24 07:00 36.8 C 81 18 128/80 98 01/18/24 07:00 91 H 01/18/24 03:59 36.7 C 82 20 124/76 93 O2 Del Method 01/18/24 13:00 01/18/24 10:51 Room Air 01/18/24 08:00 Room Air 01/18/24 07:00 Room Air 01/18/24 07:00 01/18/24 03:59 Room Air Laboratory Results 01/18/24 07:12 01/18/24 07:12 PG Care Time/CCT Total # of Minutes Spent Total Time Spent with Patient: Total time spent is greater than 50% in coordination of care (as documented) at patient's floor/unit and/or counseling patient: Coding Level of Care Code 84144 SUB INP/OBS CARE 3/50MIN Diagnoses Lethargy R53.83 Alcohol withdrawal F10.939 Hypokalemia E87.6 Rhabdomyolysis M62.82 Anemia D64.9 Atrial fibrillation I48.91 C. difficile enteritis A04.72
[2024-01-19 07:46] LABS: Basophils # (auto) 0.06 K/uL (0.00-0.20); Basophils % (auto) 0.6 %; Eosinophils # (auto) 0.14 K/uL (0.00-0.50); Eosinophils % (auto) 1.4 %; Hematocrit (blood only) 30.8 % (42.0-52.0); Hemoglobin 10.2 g/dl (14.0-18.0); Immature Granulocytes # (auto) 0.09 K/uL (0.01-0.20); Immature Granulocytes % (auto) 0.9 %; Lymphocytes # (auto) 1.74 K/uL (1.20-3.40); Lymphocytes % (auto) 16.8 %; Mean Corpuscular Hemoglobin 34.6 pg (25.0-34.0); Mean Corpuscular Hgb Conc 33.1 g/dL (32.0-36.0); Mean Corpuscular Volume 104.4 fL (80.0-100.0); Mean Platelet Volume 11.9 fL (9.4-12.4); Monocytes # (auto) 0.93 K/uL (0.11-0.59); Neutrophils # (auto) 7.37 K/uL (1.40-6.50); Neutrophils % (auto) 71.3 %; Platelet Count 329 K/uL (130-400); RDW Coefficient of Variation 13.7 % (11.5-14.5); RDW Standard Deviation 52.3 fL (36.4-46.3); Red Blood Count 2.95 M/uL (4.70-6.10); White Blood Count 10.33 K/ul (4.8-10.8)
[2024-01-19 08:08] LABS: Anion Gap 5 (3-11); BUN Creatinine Ratio 10.8 (10-20); Blood Urea Nitrogen 4 mg/dl (6-23); Calcium 8.1 mg/dl (8.6-10.3); Carbon Dioxide 25 mmol/L (21-32); Chloride 111 mmol/L (98-107); Creatinine Clr Calc Pharmacy 189.5 ml/min; Est GFR (African American) > 150.0 ml/min; Glucose 83 mg/dl (70-99(Fasting)); Potassium 3.1 mmol/L (3.5-5.1); Sodium 141 mmol/L (136-145)
[2024-01-19] MEDS: POTASSIUM CHLORIDE CRTAB 20 MEQ TABCR PO SCH (12:35)
--- NOTE | 2024-01-19 12:36 | Hospitalist Progress Note ---
Date of Service January 19, 2024 Assessment & Plan (1) Lethargy: Plan: Possible Warnicke's encephalopathy per neurology consultation. Supportive care. Brain MRI scan compromised by motion artifact but no overt ischemic CVA seen. 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 Improved (2) Alcohol withdrawal: Plan: Lethargy initially thought to be due to benzodiazepine therapy which has been discontinued. However, he remained encephalopathic. Brain MRI scan compromised by motion artifact but no overt ischemic CVA. Supportive care. Possible associated Warnicke's encephalopathy. Improved (3) Hypokalemia: Plan: Potassium remains low. Oral potassium replacement increased. Continue parenteral replacement. Serial labs (4) Rhabdomyolysis: Plan: Mild on admission. CK has now normalized. (5) Anemia: Plan: Mild. Chronic. Peripheral smear negative for autoimmune hemolytic anemia. No overt melena or hematochezia. Will follow. (6) Atrial fibrillation: Plan: Transient. He has converted back to normal sinus rhythm. Thyroid profile is normal. Cardiac echo report reveals normal left ventricular ejection fraction with evidence of diastolic dysfunction. No significant valvular abnormalities. Telemetry (7) C. difficile enteritis: Plan: Continue oral vancomycin therapy, day 4 of 10 Plan Rehab placement apparently denied by insurance. Peer to peer phone call has been made and awaiting return call. He is medically stable. Admission and Anticipated Discharge Date Admission Date: January 09, 2024 Subjective Mental status continues to improve. He is alert and oriented today and conversant. I tried to call his mother but there was no answer. Oral potassium therapy has been uptitrated due to hypokalemia. He will also receive parenteral potassium. Hyponatremia has now resolved with current sodium 141. Review of Systems 2 Review of Systems: Constitutional-no fever or chills. Mental status has improved and he is now alert and oriented. HEENTno blurred vision, no double vision, no epistaxis, no sore throat Respiratory-no cough, no wheezing, no shortness of breath Cardiac-no palpitations, no chest pain, no syncope GI-no nausea, vomiting, diarrhea, melena, hematochezia -no urinary retention, no urinary incontinence, no dysuria, no hematuria Musculoskeletal-no joint pain, no muscle tenderness Skin-no bruising, no rashes, no pruritus Neuro-generalized weakness. Ataxic gait per physical therapy notes. Psych-encephalopathy has resolved Physical Exam 2 Physical Exam: General-alert and oriented x 3. No fever, no chills HEENT-head atraumatic and normocephalic, pupils equal and reactive to light, extraocular muscles intact Neck-no lymphadenopathy or thyromegaly, trachea midline Chest-clear to auscultation. No rales, wheezing or rhonchi Cardiac-regular rate and rhythm, normal S1 and S2 Abdomen-normal bowel sounds, no hepatosplenomegaly Extremities-no cyanosis, clubbing, or edema Neuro-cranial nerves II through XII intact, motor and sensory function within normal limits, strength symmetrical with generalized weakness, ataxic gait, no focal deficits Psych-normal mood. Normal affect. Encephalopathy has resolved Results & Data Results & Data Vital Signs (Past 12 Hours) Vital Signs Temp Pulse Pulse Resp BP BP Pulse Ox 01/19/24 11:48 37.5 C 84 16 113/72 96 01/19/24 08:24 37.4 C 78 16 113/76 96 01/19/24 07:39 93 H 01/19/24 04:03 36.5 C 88 16 107/73 94 O2 Del Method 01/19/24 11:48 Room Air 01/19/24 08:24 Room Air 01/19/24 07:39 01/19/24 04:03 Room Air Laboratory Results 01/19/24 07:18 01/19/24 07:18 PG Care Time/CCT Total # of Minutes Spent Total Time Spent with Patient: Total time spent is greater than 50% in coordination of care (as documented) at patient's floor/unit and/or counseling patient: Coding Level of Care Code 01175 SUB INP/OBS CARE 3/50MIN Diagnoses Lethargy R53.83 Alcohol withdrawal F10.939 Hypokalemia E87.6 Rhabdomyolysis M62.82 Anemia D64.9 Atrial fibrillation I48.91 C. difficile enteritis A04.72
[2024-01-19] MEDS: POTASSIUM CHLORIDE / WTR 10 MEQ/100 ML PLCT IV SCH (12:43)
[2024-01-20 07:52] LABS: Anion Gap 6 (3-11); BUN Creatinine Ratio 14.6 (10-20); Blood Urea Nitrogen 6 mg/dl (6-23); Carbon Dioxide 25 mmol/L (21-32); Chloride 111 mmol/L (98-107); Creatinine Clr Calc Pharmacy 167.8 ml/min; Est GFR (African American) > 150.0 ml/min; Est GFR (Non-African American) 133.3 ml/min; Glucose 95 mg/dl (70-99(Fasting)); Sodium 142 mmol/L (136-145)
[2024-01-20] MEDS: POTASSIUM CHLORIDE / WTR 10 MEQ/100 ML PLCT IV SCH (11:04)
--- NOTE | 2024-01-20 15:09 | Hospitalist Progress Note ---
Date of Service January 20, 2024 Assessment & Plan (1) Lethargy: Plan: Possible Warnicke's encephalopathy per neurology consultation. Supportive care. Brain MRI scan compromised by motion artifact but no overt ischemic CVA seen. 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 Improving (2) Alcohol withdrawal: Plan: Lethargy initially thought to be due to benzodiazepine therapy which has been discontinued. However, he remained encephalopathic. Brain MRI scan compromised by motion artifact but no overt ischemic CVA. Supportive care. Possible associated Warnicke's encephalopathy. Improving (3) Hypokalemia: Plan: Potassium remains low. Continue oral potassium replacement. Parenteral potassium again ordered today, January 19. Will recheck potassium level later today. Serial labs (4) Rhabdomyolysis: Plan: Mild on admission. CK has now normalized. Resolved (5) Anemia: Plan: Mild. Chronic. Peripheral smear negative for autoimmune hemolytic anemia. No overt melena or hematochezia. Will follow. (6) Atrial fibrillation: Plan: Transient. He has converted back to normal sinus rhythm. Thyroid profile is normal. Cardiac echo report reveals normal left ventricular ejection fraction with evidence of diastolic dysfunction. No significant valvular abnormalities. Telemetry (7) C. difficile enteritis: Plan: Continue oral vancomycin therapy, day 5 of 10 Plan Rehab placement denied by insurance. Case management is pursuing SNF placement. Admission and Anticipated Discharge Date Admission Date: January 09, 2024 Subjective Alert and appears oriented. Mental status continues to improve. Potassium remains low at 3.0. Oral and IV replacement ordered. Will recheck potassium level later today. I spoke to his mother at the bedside. IPR placement was denied. Case management pursuing SNF placement. Day 5 10 of oral vancomycin therapy. Review of Systems 2 Review of Systems: Constitutional-no fever or chills. Mental status has improved and he is now alert and oriented. HEENTno blurred vision, no double vision, no epistaxis, no sore throat Respiratory-no cough, no wheezing, no shortness of breath Cardiac-no palpitations, no chest pain, no syncope GI-no nausea, vomiting, diarrhea, melena, hematochezia -no urinary retention, no urinary incontinence, no dysuria, no hematuria Musculoskeletal-no joint pain, no muscle tenderness Skin-no bruising, no rashes, no pruritus Neuro-generalized weakness. Ataxic gait per physical therapy notes. Psych-encephalopathy has resolved Physical Exam 2 Physical Exam: General-alert and oriented x 3. No fever, no chills HEENT-head atraumatic and normocephalic, pupils equal and reactive to light, extraocular muscles intact Neck-no lymphadenopathy or thyromegaly, trachea midline Chest-clear to auscultation. No rales, wheezing or rhonchi Cardiac-regular rate and rhythm, normal S1 and S2 Abdomen-normal bowel sounds, no hepatosplenomegaly Extremities-no cyanosis, clubbing, or edema Neuro-cranial nerves II through XII intact, motor and sensory function within normal limits, strength symmetrical with generalized weakness, ataxic gait, no focal deficits Psych-normal mood. Normal affect. Encephalopathy has resolved Results & Data Results & Data Vital Signs (Past 12 Hours) Vital Signs Temp Pulse Pulse Resp BP Pulse Ox O2 Del Method 01/20/24 15:04 88 01/20/24 11:00 36.9 C 83 16 125/83 96 Room Air 01/20/24 08:01 85 01/20/24 08:00 Room Air 01/20/24 07:00 36.5 C 83 16 133/87 96 Room Air 01/20/24 04:02 37.1 C 89 18 114/70 94 Room Air Laboratory Results 01/19/24 07:18 01/20/24 06:34 PG Care Time/CCT Total # of Minutes Spent Total Time Spent with Patient: Total time spent is greater than 50% in coordination of care (as documented) at patient's floor/unit and/or counseling patient: Coding Level of Care Code 27986 SUB INP/OBS CARE 3/50MIN Diagnoses Lethargy R53.83 Alcohol withdrawal F10.939 Hypokalemia E87.6 Rhabdomyolysis M62.82 Anemia D64.9 Atrial fibrillation I48.91 C. difficile enteritis A04.72
[2024-01-21 08:51] LABS: Anion Gap 4 (3-11); BUN Creatinine Ratio 16.2 (10-20); Blood Urea Nitrogen 6 mg/dl (6-23); Calcium 7.9 mg/dl (8.6-10.3); Carbon Dioxide 26 mmol/L (21-32); Chloride 110 mmol/L (98-107); Creatinine Clr Calc Pharmacy 180.5 ml/min; Est GFR (African American) > 150.0 ml/min; Glucose 82 mg/dl (70-99(Fasting)); Potassium 3.2 mmol/L (3.5-5.1); Sodium 140 mmol/L (136-145)
[2024-01-21 11:34] LABS: Magnesium 1.7 mg/dl (1.7-2.4)
[2024-01-21] MEDS: MAGNESIUM SULFATE / D5W 1 GM/100 ML BAG IV ONE (17:02)
--- NOTE | 2024-01-21 17:25 | Hospitalist Progress Note ---
Date of Service January 21, 2024 Assessment & Plan (1) Wernicke encephalopathy: Plan: Possible Wernicke's encephalopathy per neurology consultation. With underlying alcohol use disorder and cerebellar atrophy on MRI brain Increase thiamine to 200mg po bid x 1 month, then 100mg daily Still with some confabulation here but overall mentation improved since admission Supportive care. Encouraged alcohol cessation (2) C. difficile enteritis: Plan: With diarrhea and colitis seen on CT abd/pel. Diarrhea slowed down on po Vanco therapy Finish out 10 day course of oral vancomycin therapy on 01/27/24 replace K+ and magnesium as needed (3) Alcohol withdrawal: Plan: Presented after being found down in his neighbor's yard, presumably from EtOH intoxication although EtOH level was negative on admission. Urine drug screen negative on admission He was treated with Librium initially and then developed lethargy initially - Librium discontinued, however, he remained encephalopathic. With possible Wernicke's as above now improving with thiamine COntinue thiamine, folic acid Encouraged EtOH cessation but he says he will always drink some beer every now and then (4) Hypokalemia: Plan: Potassium remains low but improving, likely from GI losses, poor po intake Continue oral potassium replacement with 20 meq po tid follow BMP, magnesium in AM give 1 gram IV magnesium and dc po mag as this can worsen diarrhea (5) Anemia: Plan: Mild. Chronic. Macrocytic B12, folate, TSH all normal Peripheral smear negative for autoimmune hemolytic anemia. No overt melena or hematochezia Check Fe studies as well Likely chronic disease or from poor nutrition due to AUD Follow CBC (6) Rhabdomyolysis: Plan: Mild on admission. CK has now normalized. Resolved (7) Atrial fibrillation: Plan: Transient on admission. He has converted back to normal sinus rhythm and remained in such. Thyroid profile is normal. Cardiac echo report reveals normal left ventricular ejection fraction with evidence of diastolic dysfunction. No significant valvular abnormalities. Hold off on anticoagulation given history of EtOH abuse, falls, and does not have elevated [id number] score (his score is 0) Recommend 30 day event monitor after discharge to further assess Afib burden (8) Elevated transaminase level: Plan: TBili and AST/ALT/ALK phos all elevated on admission, likely due to EtOH hepatitis, fatty liver, and mild rhabdo Improving on last check, follow labs in AM Plan Rehab placement denied by insurance. Case management is pursuing SNF placement. Awaiting to hear back from [facility] DVT proph-Lovenox SQ Admission and Anticipated Discharge Date Admission Date: January 09, 2024 Subjective Pt's nurse reports 1 loose stool today but the patient doesn't recall this. He denies abd pain, no pain at all, no other concerns. He does start to tell me how he left the the hospital the otherday and went home to search for his jeans and wallet and then returned back to his room. Tele with NSR rates 80-90s Physical Exam Constitutional: WD/WN, vitals as above Respiratory: normal respiratory effort, lungs clear to auscultation Cardiovascular: RRR, no murmur, no edema Gastrointestinal (Abdomen): normal bowel sounds, soft, nontender, no hepatosplenomegaly Results & Data Results & Data Vital Signs (Past 12 Hours) Vital Signs Temp Pulse Pulse Resp BP Pulse Ox O2 Del Method 01/21/24 13:17 Room Air 01/21/24 11:15 37.0 C 86 18 125/79 97 Room Air 01/21/24 07:33 84 01/21/24 07:20 36.8 C 65 18 147/77 H 97 Room Air Laboratory Results BMP, magnesium reviewed PG Care Time/CCT Total # of Minutes Spent Total Time Spent with Patient: Total time spent is greater than 50% in coordination of care (as documented) at patient's floor/unit and/or counseling patient: Coding Level of Care Code 51382 SUB INP/OBS CARE 2/35MIN Diagnoses Wernicke encephalopathy E51.2 C. difficile enteritis A04.72 Alcohol withdrawal F10.939 Hypokalemia E87.6 Anemia D64.9 Rhabdomyolysis M62.82 Atrial fibrillation I48.91 Elevated transaminase level R74.01
[2024-01-21] MEDS: THIAMINE HCL 100 MG TAB PO SCH (20:23)
[2024-01-22 08:31] LABS: Basophils # (auto) 0.05 K/uL (0.00-0.20); Basophils % (auto) 0.6 %; Eosinophils # (auto) 0.24 K/uL (0.00-0.50); Hematocrit (blood only) 29.9 % (42.0-52.0); Hemoglobin 9.9 g/dl (14.0-18.0); Immature Granulocytes # (auto) 0.11 K/uL (0.01-0.20); Immature Granulocytes % (auto) 1.4 %; Lymphocytes # (auto) 2.29 K/uL (1.20-3.40); Lymphocytes % (auto) 28.6 %; Mean Corpuscular Hemoglobin 34.6 pg (25.0-34.0); Mean Corpuscular Hgb Conc 33.1 g/dL (32.0-36.0); Mean Corpuscular Volume 104.5 fL (80.0-100.0); Mean Platelet Volume 11.7 fL (9.4-12.4); Monocytes # (auto) 1.14 K/uL (0.11-0.59); Monocytes % (auto) 14.2 %; Neutrophils # (auto) 4.19 K/uL (1.40-6.50); Neutrophils % (auto) 52.2 %; Platelet Count 307 K/uL (130-400); RDW Coefficient of Variation 13.9 % (11.5-14.5); RDW Standard Deviation 53.7 fL (36.4-46.3); Red Blood Count 2.86 M/uL (4.70-6.10); White Blood Count 8.02 K/ul (4.8-10.8)
[2024-01-22 09:10] LABS: Anion Gap 5 (3-11); Calcium 7.9 mg/dl (8.6-10.3); Carbon Dioxide 25 mmol/L (21-32); Chloride 110 mmol/L (98-107); Magnesium 1.7 mg/dl (1.7-2.4); Potassium 3.1 mmol/L (3.5-5.1); Sodium 140 mmol/L (136-145)
[2024-01-22 09:15] LABS: BUN Creatinine Ratio 15.2 (10-20); Blood Urea Nitrogen 5 mg/dl (6-23); Creatinine Clr Calc Pharmacy 202.3 ml/min; Est GFR (African American) > 150.0 ml/min; Est GFR (Non-African American) 145.7 ml/min; Glucose 81 mg/dl (70-99(Fasting)); Iron 37 mcg/dl (35-175); Total Iron Binding Cap Calc 141 mcg/dl (250-450); Transferrin (FE) Percent Satur 26 % (20-50); Unsaturated Iron Binding Cap 104 mcg/dl (155-355)
[2024-01-22 09:34] LABS: Ferritin 1093.7 ng/ml (8-388)
[2024-01-22] MEDS: MAGNESIUM SULFATE / D5W 1 GM/100 ML BAG IV SCH (11:07)
[2024-01-22] MEDS: POTASSIUM CHLORIDE CRTAB 20 MEQ TABCR PO SCH (13:28)
--- NOTE | 2024-01-22 17:37 | Hospitalist Progress Note ---
Date of Service January 22, 2024 Assessment & Plan (1) Wernicke encephalopathy: Plan: Possible Wernicke's encephalopathy per neurology consultation. With underlying alcohol use disorder and cerebellar atrophy on MRI brain Increased thiamine to 200mg po bid x 1 month, then 100mg daily Still with some confabulation here but overall mentation improved since admission Supportive care. Encouraged alcohol cessation (2) C. difficile enteritis: Plan: With diarrhea and colitis seen on CT abd/pel. Diarrhea slowed down on po Vanco therapy Finish out 10 day course of oral vancomycin therapy on 01/27/24 Diarrhea is only 1-2 times per day but has very poor appetite still, denies abdominal pain. No leukocytosis or fever replace K+ and magnesium as needed-increase potassium to 40 mEq 3 times daily, give IV magnesium today 1 g (3) Alcohol withdrawal: Plan: Presented after being found down in his neighbor's yard, presumably from EtOH intoxication although EtOH level was negative on admission. Urine drug screen negative on admission He was treated with Librium initially and then developed lethargy initially - Librium discontinued, however, he remained encephalopathic. With possible Wernicke's as above now improving with thiamine COntinue thiamine, folic acid Encouraged EtOH cessation but he says he will always drink some beer every now and then (4) Hypokalemia: Plan: Potassium remains low likely from GI losses, poor po intake Continue oral potassium replacement but increase to 40 meq po tid follow BMP, magnesium in AM give 1 gram IV magnesium (5) Anemia: Plan: Mild. Chronic. Macrocytic B12, folate, TSH all normal Peripheral smear negative for autoimmune hemolytic anemia. No overt melena or hematochezia Fe studies are normal except ferritin is greater than 1000 likely secondary to acute infection Likely chronic disease or from poor nutrition due to AUD Follow CBC (6) Rhabdomyolysis: Plan: Mild on admission. CK has now normalized. Resolved (7) Atrial fibrillation: Plan: Transient on admission. He has converted back to normal sinus rhythm and remained in such. Thyroid profile is normal. Cardiac echo report reveals normal left ventricular ejection fraction with evidence of diastolic dysfunction. No significant valvular abnormalities. Anticoagulation not indicated as his [id number] score is 0 Recommend 30 day event monitor after discharge to further assess Afib burden (8) Elevated transaminase level: Plan: TBili and AST/ALT/ALK phos all elevated on admission, likely due to EtOH hepatitis, fatty liver, and mild rhabdo Improving on last check, follow LFTs in AM Plan Rehab placement denied by insurance. Case management is pursuing SNF placement. There is a bed available and he is excepted at [facility] pending DVT proph-Lovenox SQ Admission and Anticipated Discharge Date Admission Date: January 09, 2024 Subjective Patient has no complaints. Denies abdominal pains. He reports he is eating it and that his last bowel movement was at 4:00 this morning, however the nurse reports that he barely ate anything for breakfast or lunch and he did have 1 bowel movement during the day shift. Physical Exam Constitutional: WD/WN, vitals as above Respiratory: normal respiratory effort, lungs clear to auscultation Cardiovascular: RRR, no murmur, no edema Gastrointestinal (Abdomen): normal bowel sounds, soft, nontender, no hepatosplenomegaly Results & Data Results & Data Vital Signs (Past 12 Hours) Vital Signs Temp Pulse Resp BP Pulse Ox O2 Del Method 01/22/24 15:28 36.7 C 90 18 108/68 94 Room Air 01/22/24 10:30 Room Air 01/22/24 07:46 36.9 C 87 18 127/85 97 Room Air Laboratory Results CBC, BMP, magnesium, iron studies reviewed PG Care Time/CCT Total # of Minutes Spent Total Time Spent with Patient: Total time spent is greater than 50% in coordination of care (as documented) at patient's floor/unit and/or counseling patient: Coding Level of Care Code 96857 SUB INP/OBS CARE 2/35MIN Diagnoses Wernicke encephalopathy E51.2 C. difficile enteritis A04.72 Alcohol withdrawal F10.939 Hypokalemia E87.6 Anemia D64.9 Rhabdomyolysis M62.82 Atrial fibrillation I48.91 Elevated transaminase level R74.01
[2024-01-23 06:29] LABS: Albumin Level 2.4 gm/dl (3.4-5.0); BUN Creatinine Ratio 13.3 (10-20); Bilirubin Direct 0.2 mg/dl (0-0.2); Bilirubin,Total 0.8 mg/dl (0.2-1.0); Calcium 7.8 mg/dl (8.6-10.3); Creatinine Clr Calc Pharmacy 148.4 ml/min; Est GFR (African American) 148.7 ml/min; Est GFR (Non-African American) 128.3 ml/min; Magnesium 1.7 mg/dl (1.7-2.4); Potassium 3.4 mmol/L (3.5-5.1); Total Protein 5.3 gm/dl (6.0-8.3)
[2024-01-23 06:39] LABS: Basophils # (auto) 0.06 K/uL (0.00-0.20); Basophils % (auto) 0.6 %; Eosinophils # (auto) 0.28 K/uL (0.00-0.50); Hematocrit (blood only) 29.3 % (42.0-52.0); Hemoglobin 9.8 g/dl (14.0-18.0); Immature Granulocytes # (auto) 0.11 K/uL (0.01-0.20); Immature Granulocytes % (auto) 1.2 %; Lymphocytes # (auto) 2.88 K/uL (1.20-3.40); Mean Corpuscular Hemoglobin 34.3 pg (25.0-34.0); Mean Corpuscular Hgb Conc 33.4 g/dL (32.0-36.0); Mean Corpuscular Volume 102.4 fL (80.0-100.0); Monocytes # (auto) 1.04 K/uL (0.11-0.59); Monocytes % (auto) 11.2 %; Neutrophils # (auto) 4.92 K/uL (1.40-6.50); Platelet Count 317 K/uL (130-400); RDW Coefficient of Variation 13.6 % (11.5-14.5); RDW Standard Deviation 51.6 fL (36.4-46.3); Red Blood Count 2.86 M/uL (4.70-6.10); White Blood Count 9.29 K/ul (4.8-10.8)
--- NOTE | 2024-01-23 12:23 | Discharge Summary ---
Discharge Summary Date of Service January 23, 2024 Principal Dx & Hospital Course #1 = Principal Diagnosis (1) Wernicke encephalopathy: Possible Wernicke's encephalopathy per neurology consultation. With underlying alcohol use disorder and cerebellar atrophy on MRI brain Increased thiamine to 200mg po bid x 1 month, then 100mg daily Still with some confabulation here but overall mentation improved since admission. Is forgetful with short-term memory Supportive care. Encouraged alcohol cessation (2) C. difficile enteritis: With diarrhea and colitis seen on CT abd/pel. Diarrhea much improved on po Vanco therapy Finish out 10 day course of oral vancomycin therapy on 01/26/24 Diarrhea is only 1-2 times per day but has very poor appetite still, denies abdominal pain. No leukocytosis or fever replace K+ and magnesium as needed-give potassium chloride 20 mEq p.o. twice daily x 3 more days and check BMP at rehab (3) Alcohol withdrawal: Presented after being found down in his neighbor's yard, presumably from EtOH intoxication although EtOH level was negative on admission. Urine drug screen negative on admission He was treated with Librium initially and then developed lethargy initially -Librium discontinued, however, he remained encephalopathic. With possible Wernicke's as above now improving with thiamine COntinue thiamine, folic acid, and multivitamin Encouraged EtOH cessation but he says he will always drink some beer every now and then (4) Hypokalemia: Potassium remains low likely from poor po intake. Potassium is improving today and his oral intake is improving Continue oral potassium replacement at 20 meq po bid x 3 days and check BMP follow BMP in 3 days (5) Anemia: Mild. Chronic. Macrocytic B12, folate, TSH all normal Peripheral smear negative for autoimmune hemolytic anemia. No overt melena or hematochezia Fe studies are normal except ferritin is greater than 1000 likely secondary to acute infection Likely chronic disease or from poor nutrition due to AUD Follow CBC as an outpatient and follow-up with PCP (6) Rhabdomyolysis: Mild on admission. CK has now normalized. Resolved (7) Atrial fibrillation: Transient on admission. He has converted back to normal sinus rhythm and remained in such. Thyroid profile is normal. Cardiac echo report reveals normal left ventricular ejection fraction with evidence of diastolic dysfunction. No significant valvular abnormalities. Anticoagulation not indicated as his [id number] score is 0 Recommend 30 day event monitor after discharge to further assess Afib burden (8) Elevated transaminase level: TBili and AST/ALT/ALK phos all elevated on admission, likely due to EtOH hepa titis, fatty liver, and mild rhabdo Improving and now completely back to normal except minimal elevation of alkaline phosphatase Plan Stable for discharge to [facility] and rehab DVT proph-Lovenox SQ was provided Notes For Next Care Provider Check BMP in 3 days Medication Changes From Visit Added folic acid 1 mg p.o. daily Added multivitamin 1 tablet p.o. daily Added thiamine 200 mg p.o. twice daily x 1 month Added vancomycin 125 mg p.o. every 6 hours x 3 more days Added potassium chloride 20 mEq p.o. twice daily x 3 days Admission HPI Per Admitting Provider Fritz is a 53-year-old male with unknown PMH. Presented after being found down outside his apartment complex under a bushes on 01/08. He is not alert or oriented to month/location/purpose in the hospital at time of admission. Patient is unsure what happened last night. He does report that he drinks 3-4 drinks daily; mainly Puja and Dr. Anderson. His last drink was reportedly on Saturday 01/06. Patient denies history of seizures or alcohol withdrawal. He denies head strike, but does note that he has a bump on his right head. Patient reports he lives with his mom; he is okay with her being called, but does not know her number at this time. Patient is a poor historian at this time. Vital stable at time of admission. ED course: K rider 10 mg IV x 4 Banana bag x 1 NSS 1000 mL IV Lorazepam 1 mg p.o. Rocephin 2 mg IV Magnesium sulfate 1 g IV Unable to obtain an accurate ROS at this time given altered mental status; however, denies fever, chills, chest pain, chest pressure, SOB, or abdominal pain. Discharge Exam Constitutional WD/WN, vitals as above Respiratory normal respiratory effort, lungs clear to auscultation Cardiovascular RRR, no murmur, no edema Gastrointestinal (Abdomen) normal bowel sounds, soft, nontender, no hepatosplenomegaly Updated Medication List Medication Instructions Recorded Confirmed Type No Known Home Medications 01/09/24 01/09/24 History folic acid 1 mg tablet 1 mg PO QAM #30 tabs 01/23/24 Rx multivitamin 1 tab PO DAILY #30 tabs 01/23/24 Rx potassium chloride 20 mEq 20 meq PO BID 3 days #6 tabs 01/23/24 Rx tablet,extended release(part/cryst) thiamine HCl (vitamin B1) 100 mg 200 mg (2 x 100 mg) PO BID #120 01/23/24 Rx tablet tabs vancomycin 125 mg capsule 125 mg PO Q6H 3 days #12 caps 01/23/24 Rx (Vancocin) Hospital Stay Data Consultations 01/09/24 14:19 ED Decision to Admit Stat 01/15/24 14:58 Consult Neurology Routine Diagnostic Imagining Performed 01/09/24 11:23 CT cervical spine wo con Stat CT head/brain wo con Stat 01/09/24 12:20 CT Abd and Pelvis [CT abd pelvis IV con only] Stat 01/14/24 16:21 MR brain wo con Routine Pending Results Patient Have Any Pending Studies at Discharge: No Discharge Instructions Given to Patient (Per Discharging Provider) You were admitted after being found down outside from alcohol intoxication. You had some withdrawal which was treated with Librium and you were confused which is secondary to complications from alcohol use. This was treated with high doses of thiamine which you should continue on for at least 1 month. It is strongly recommended that you quit drinking all alcohol. You also had C. difficile colitis while you are here which was treated with vancomycin orally. You will need 3 more days of vancomycin to complete the course. You had low potassium levels and this will be replaced orally. Please have your basic metabolic panel checked in 3 days to see if your potassium levels are back to normal. Total Time Total Time Spent Total Time Spent (In Minutes): 35 minutes Total Time Includes: Examination of the Patient, Discharge Planning and Medication Reconciliation Coding Level of Care Code 61278 INP/OBS DISCH >30 MIN Diagnoses Wernicke encephalopathy E51.2 C. difficile enteritis A04.72 Alcohol withdrawal F10.939 Hypokalemia E87.6 Anemia D64.9 Rhabdomyolysis M62.82 Atrial fibrillation I48.91 Elevated transaminase level R74.01
== END 2024-01-23 15:26 | DRG 896 ==
LOC: ED 11:07 → SUATTDRO 16:06 → 2S 16:06 → 2W 01-13 17:11 → 3E 01-22 22:14